=== PATIENT | male | born 1955 | race Caucasian/White ===

== ENCOUNTER 2017-12-31 12:48 | Inpatient (IN) | payer OTHER, SELFPAY ==
[2017-12-31] VITALS (10 sets, daily range): BP systolic 90–165; BP diastolic 59–104; PULSE 66–88; RESP 16–18; TEMP 36.5–37.3; O2SAT 92–98; BMI 20.2; BMI 18.8
--- NOTE | 2017-12-31 12:52 | EKG12_ITS ---
Test Reason : DYSRHYTHMIA Blood Pressure : / mmHG Vent. Rate : 068 BPM Atrial Rate : 068 BPM P-R Int : 152 ms QRS Dur : 090 ms QT Int : 414 ms P-R-T Axes : 062 085 067 degrees QTc Int : 440 ms Normal sinus rhythm Poor R wave progression Confirmed by EARNEST MARTINEZ, MEREDITH ([id number]), loan expeditor GASPER ESCALANTE ([id number]) on 01/05/2018 2:10:30 PM Referred By: STANLEY Confirmed By:MEREDITH TINOCO MD
--- NOTE | 2017-12-31 12:52 | RAD_ITS ---
STUDY: X-RAY CHEST REASON FOR EXAM: Male, 62 years old. Syncope. TECHNIQUE: Single AP portable view of the chest. COMPARISON: Comparison is made with prior study dated February 15, 2017. FINDINGS: EKG electrodes are seen. Hyperinflation. Scattered calcified granulomas. There is no demonstrated pleural abnormality. Normal size heart. Normal mediastinum and josé miguel. Normal visualized pulmonary arteries. Normal visualized aortic arch and descending thoracic aorta. There are diffuse degenerative changes of the visualized thoracic spine. Normal visualized ribs, clavicles, and shoulders. There is no demonstrated abnormality of the visualized soft tissue structures of the upper abdomen. RAD/Chest 1 View (Portable) IMPRESSION: Hyperinflation. The lungs are clear. Electronically Signed: Carlos Eduardo Currie MD at 13:41 EDT Tel [phone], Service support ,
--- NOTE | 2017-12-31 12:55 | ED.VISSUMM ---
- ER Visit Summary Date of Service: 12/31/17 Chief Complaint: Recurrent syncope History of Present Illness: The patient is a 62 M presents to the emergency department with multiple syncopal episodes. The patient states that he has been having them every day for the past 5-6 days. He states that initially, it started when he stood up quickly. He states he got very lightheaded and sweaty and then passed out. He states it happened almost every day since. It usually happens with change in position. He states when he moves quickly, he will get lightheaded. He denies any chest pain. He denies any shortness of breath. Patient has a long-standing history of alcohol abuse, but has had no change in his bowel movements. He denies any dark tarry stools. He has not no vomiting or hematemesis. He does have history of coronary vascular disease and is on multiple antihypertensives. He states he has been taking them without issue. He does take baby aspirin but no other anticoagulants. He denies headache or visual change. Physical Examination: Vital signs reviewed General: Well-nourished, well-developed Head: Normocephalic, atraumatic Eyes: Pupils equal and reactive, extraocular muscles intact Neck, supple, no lymphadenopathy Heart: Regular rate and rhythm Respiratory: No distress, clear bilaterally Abdomen: Soft, nontender, nondistended, no peritoneal signs Back: Nontender Extremities: Nontender, no edema, no cords Skin: Normal color no rash Neuro: Alert and oriented, no focal or lateralizing deficits Test Results: [] Emergency Department Course and Treatment: The patient has a benign examination. His EKG does not show ischemic change, prolonged QT, or other focus of arrhythmia. IV was established. Screening labs were obtained and are relatively unremarkable. The patient has no anemia. His cardiac enzymes are normal. Electrolytes are unremarkable. I do not feel that his symptoms are likely secondary to blood loss or other dangerous cause. The patient does have underlying history of coronary vascular disease and has had recurrent syncope. His orthostatics were positive. I do feel this may be a combination of his alcohol abuse and antihypertensives. However, I do feel that the patient is going require admission for further cardiac rule out including telemetry and echo. Patient was discussed with the hospitalist and will be admitted. Treatment Plan: [] Disposition: Admission Impression: 1. Recurrent syncope This note was generated with Dragon dictation software. It may contain incorrect words, spelling, and punctuation that were not noted in review of the chart prior to signing ED Disposition - Plan for ED Patient: Chief Complaint: Syncope [facility] [[facility] Provider] -
[2017-12-31] MEDS: 0.9% Normal Saline 1,000 ML 1000 ML IV (13:00)
--- NOTE | 2017-12-31 13:00 | ED.RN ---
CALLED [facility] TO NOTIFY THEM THAT PT WILL BE AN ADMISSION. LEFT MESSAGE
[2017-12-31 13:10] LABS: Absolute Lymphocyte Count 2.52 X10^3/ul (0.83-4.51); Absolute Neutrophil Count 3.1 X10^3/uL (2.0-7.7); Basophil# 0.05 X10^3/uL; Basophil% 0.8 % (0-1); Eosinophil# 0.24 X10^3/uL; Eosinophils% 3.7 % (0-5); Hematocrit 44.1 % (40-54); Hemoglobin 15.2 g/dl (13.0-16.5); Lymphocyte # 2.52 X10^3/ul (4.0); Lymphocyte % 38.5 % (19-41); Mean Corp Hgb Conc 34.5 g/gl (32-36); Mean Corpuscular Hgb 30.4 pg (27.0-32.0); Mean Corpuscular Volume 88.2 fL (80-94); Mean Platelet Vol. 9.1 fl (6.2-12.0); Monocyte% 9.2 % (0-10); Neutrophil # 3.12 X10^3/uL (2.7-7.7); Neutrophil % 47.6 % (47-70); POSITIVE COUNT NO; POSITIVE DIFFERENTIAL NO; POSITIVE MORPHOLOGY NO; Platelet Count 309 K/mm3 (150-450); RBC Distribution Width CV 14.2 % (11.6-14.6); RBC Distribution Width SD 45.4 fl (35.1-43.9); White Blood Count 6.5 K/mm3 (4.4-11.0)
[2017-12-31 13:17] LABS: International Normalized Ratio 0.9; Prothrombin Time (Protime)PT. 12.1 SECONDS (11.7-14.9)
[2017-12-31 13:25] LABS: Bacteria 0 SEEN /hpf (None Seen); Mucous, Urine 0 SEEN /hpf (<or=2+); Red Blood Cells-Urine 0 SEEN /hpf (0-5); Squamous Epithelial Cells - UA 0 SEEN /hpf (0-5); White Blood Cells 0 SEEN /hpf (0-5)
[2017-12-31 13:26] LABS: ALB/GLOB Ratio 0.9 RATIO (0.9-2.4); AST(SGOT) 110 U/L (15-37); Alanine Aminotransfer ALT/SGPT 91 U/L (16-61); Albumin, Serum 3.8 g/dL (3.2-5.0); Alkaline Phosphatase 113 U/L (45-117); Anion Gap 8 (5-15); BUN 4 mg/dL (7-18); BUN/Creat Ratio 6.4 RATIO (10-20); Calcium,Total 8.8 mg/dL (8.5-10.1); Chloride 93 mmol/L (98-107); Creatinine, Serum 0.63 mg/dL (0.70-1.30); EST Glomerular Filtration Rate 138 mL/min (>60); Est Glom Filt Rate - Afr Amer 167 mL/min (>60); Estimated Creatinine Clearance 103.35 ml/min; Globulin 4.2 g/dL (2.2-4.2); Glucose 117 mg/dL (74-106); Potassium 4.1 mmol/L (3.5-5.1); Sodium Level 131 mmol/L (136-145)
[2017-12-31 13:33] LABS: Color, Urine Straw (Yellow); Glucose, Dipstick Normal (Normal); Ketone-Dipstick Negative (Negative); Leukocyte Esterase-Dipstick 25 /ul (Negative); Nitrite-Dipstick Negative (Negative); Occult Blood-Urine Negative /ul (Negative); Protein-Dipstick Negative (Negative); Urine Bilirubin Dipstick Negative (Negative); Urine Clarity Clear (Clear); Urine Urobilinogen Normal (Normal); Urine pH 6.5 (5.0 - 8.0)
--- NOTE | 2017-12-31 13:59 | ED.RN ---
LEFT MESSAGE WITH [facility]
--- NOTE | 2017-12-31 15:00 | ED.RN ---
LEFT MESSAGE WITH [facility]; I HAVE BEEN UNABLE TO SPEAK WITH ANY PERSON
--- NOTE | 2017-12-31 15:40 | HP.PCM_ITS ---
<Geoffrey Hackett - Last Filed: 12/31/17 15:26> Problem List (1) Orthostatic hypotension Status: Acute (2) Syncope and collapse Status: Acute (3) Alcohol abuse Status: Chronic (4) Tobacco dependence Status: Chronic (5) BPH (benign prostatic hyperplasia) Status: Chronic (6) HTN (hypertension) Status: Chronic (7) CAD (coronary artery disease) Status: Chronic History of Present Illness Date of Admission: 12/31/17 Chief Complaint: syncope The patient is a 62 year old M with a hx of CAD, prior NE, Moyamoya disease, HTN , CHF, alcoholism, nicotine abuse, BPH, who presents to the ER with syncope that has happened at least 5 times over the past 24 hours, but multiple times for about 5 days. He lives alone at home, and has noticed that every time he needs to stand up, he has to first sit up and stay that way for several minutes. When he does this he becomes dizzy and lightheaded initially and will pass out of he stands up to quickly. Even with doing this he has still been passing out. He has not experienced SOB, CP, or or palpitations. He has had some coughing, one coughing bout did trigger a syncopal episode. He is a heavy drinkier, stating he drinks 6-12 beers daily and with an alcohol level of 150 on presentation to the ER. He also smokes heavily, stating he rolls his own but probably smokes at least a pack per day and has done so since age 17. His sister is present stating she thinks that his alcohol is part of the problem, which he denied when she stated this. He does report good compliance with his home medication regimen, he does not think that he missed anything or took double doses of anything, his sister confirms that he is very regimented. No swelling of his LE, and no difficulty emptying his bladder. [] Past Medical History Past Medical History (Chronic Problems): Chronic Problems Alcohol abuse (Chronic) Tobacco dependence (Chronic) BPH (benign prostatic hyperplasia) (Chronic) HTN (hypertension) (Chronic) CAD (coronary artery disease) (Chronic) Anxiety (Chronic) Allergies Penicillins [PCN] Allergy (Verified 12/31/17 12:53) Unknown Home Medications: Ambulatory Orders Medication Instructions Recorded Amlodipine [Norvasc] 5 mg PO DAILY 02/15/17 Aspirin [Aspir-Low] 81 mg PO DAILY 02/15/17 Carvedilol [Coreg] 3.125 mg PO BID 02/15/17 Isosorbide Mononitrate [Imdur] 60 mg PO BID 02/15/17 Tamsulosin HCl [Flomax] 0.4 mg PO DAILY 02/15/17 Surgical History: - - Patient states he had a previous bowel repair, unable to state exact procedure, brain surgery Psychiatric History: Anxiety Smoking Status: Current every day smoker Tobacco Use: Cigarettes - *Family History Maternal History Items: Cancer Paternal History Items: Hypertension Review of Systems Constitutional: Denies: Chills, Fever, Weight Change HEENT: Denies: Head Aches, Sinus Congestion, Sinus Drainage Cardiovascular: Denies: Chest Pain, Palpitations Respiratory: Denies: Cough, Shortness of breath at rest, Sputum production Gastrointestinal: Denies: Abdominal Pain, Nausea, Vomiting Genitourinary: Denies: Dysuria Musculoskeletal: Denies: Joint Pain, Joint Tenderness Skin: Denies: Rash, Wounds Neurological: Denies: Numbness, Tingling, Focal weakness Psychiatric: Denies: Anxiety, Depression, Homicidal Ideations, Suicidal Ideations Hematologic/ Lymphatic: Denies: Easy Bruising, Easy Bleeding VTE Information - Inpt Only VTE Present on Admission: No VTE Mechan Device Prophylaxis: SCD's, None VTE Pharm Prophylaxis ordered?: No Reason prophylaxis not ordered:: Medical Contraindication Patient Problems: Active and Suspected Problems Orthostatic hypotension (Acute) Syncope and collapse (Acute) - Physical Exam Vital Signs Temp Pulse Resp BP Pulse Ox 98.7 F 88 16 142/86 H 96 12/31/17 12:49 12/31/17 15:10 12/31/17 15:10 12/31/17 15:10 12/31/17 12:49 Oxygen Delivery Method Room Air Weight: 58.6 kg Body Mass Index (BMI) 20.2 Intake and Output for Last 24 Hours 12/29/17 12/30/17 12/31/17 23:59 23:59 23:59 Output Total 600 / 600 Balance -600 / -600 Laboratory Tests Past 24 Hrs 12/31/17 12/31/17 12/31/17 12:55 12:55 12:55 WBC 6.5 RBC 5.00 Hgb 15.2 Hct 44.1 MCV 88.2 MCH 30.4 MCHC 34.5 RDW 14.2 RDW Differential 45.4 H Plt Count 309 MPV 9.1 Immature Gran % (Auto) 0.200 Neut % (Auto) 47.6 Lymph % (Auto) 38.5 [place]own[place] % (Auto) 9.2 Eos % (Auto) 3.7 Baso % (Auto) 0.8 Absolute Neuts (auto) 3.1 Absolute Lymphs (auto) 2.52 Total Counted Not Reportable PT 12.1 INR 0.9 Sodium 131 L Potassium 4.1 Chloride 93 L Carbon Dioxide 30.0 Anion Gap 8 BUN 4 L Creatinine 0.63 L Estim Creat Clear Calc 103.35 Est GFR (MDRD) Af Amer 167 Est GFR (MDRD) Non-Af 138 BUN/Creatinine Ratio 6.4 L Glucose 117 H Calcium 8.8 Magnesium 2.0 Total Bilirubin 0.20 AST 110 H ALT 91 H Alkaline Phosphatase 113 Troponin I < 0.015 Total Protein 8.0 Albumin 3.8 Globulin 4.2 Albumin/Globulin Ratio 0.9 Urine Color Urine Clarity Urine pH Ur Specific [place] Urine Protein Urine Glucose (UA) Urine Ketones Urine Occult Blood Urine Nitrite Urine Bilirubin Urine Urobilinogen Ur Leukocyte Esterase Urine RBC Urine WBC Ur Squamous Epith Cells Urine Bacteria Urine Mucus Urine Amphetamine U Amphetamines Confirm Urine Cocaine Confirm U Cocaine Metab Screen U Benzoylecgonine GC/MS Ethyl Alcohol Urine Ethyl Alcohol Blood Type Antibody Screen 12/31/17 12/31/17 12/31/17 12:55 12:55 13:20 WBC RBC Hgb Hct MCV MCH MCHC RDW RDW Differential Plt Count MPV Immature Gran % (Auto) Neut % (Auto) Lymph % (Auto) [place] % (Auto) Eos % (Auto) Baso % (Auto) Absolute Neuts (auto) Absolute Lymphs (auto) Total Counted PT INR Sodium Potassium Chloride Carbon Dioxide Anion Gap BUN Creatinine Estim Creat Clear Calc Est GFR (MDRD) Af Amer Est GFR (MDRD) Non-Af BUN/Creatinine Ratio Glucose Calcium Magnesium Total Bilirubin AST ALT Alkaline Phosphatase Troponin I Total Protein Albumin Globulin Albumin/Globulin Ratio Urine Color Straw Urine Clarity Clear Urine pH 6.5 Ur Specific [place] 1.010 Urine Protein Negative Urine Glucose (UA) Normal Urine Ketones Negative Urine Occult Blood Negative Urine Nitrite Negative Urine Bilirubin Negative Urine Urobilinogen Normal Ur Leukocyte Esterase 25 H Urine RBC 0 SEEN Urine WBC 0 SEEN Ur Squamous Epith Cells 0 SEEN Urine Bacteria 0 SEEN Urine Mucus 0 SEEN Urine Amphetamine U Amphetamines Confirm Urine Cocaine Confirm U Cocaine Metab Screen U Benzoylecgonine GC/MS Ethyl Alcohol 152.0 Urine Ethyl Alcohol Blood Type A POSITIVE Antibody Screen NEGATIVE 12/31/17 13:20 WBC RBC Hgb Hct MCV MCH MCHC RDW RDW Differential Plt Count MPV Immature Gran % (Auto) Neut % (Auto) Lymph % (Auto) [place] % (Auto) Eos % (Auto) Baso % (Auto) Absolute Neuts (auto) Absolute Lymphs (auto) Total Counted PT INR Sodium Potassium Chloride Carbon Dioxide Anion Gap BUN Creatinine Estim Creat Clear Calc Est GFR (MDRD) Af Amer Est GFR (MDRD) Non-Af BUN/Creatinine Ratio Glucose Calcium Magnesium Total Bilirubin AST ALT Alkaline Phosphatase Troponin I Total Protein Albumin Globulin Albumin/Globulin Ratio Urine Color Urine Clarity Urine pH Ur Specific [place] Urine Protein Urine Glucose (UA) Urine Ketones Urine Occult Blood Urine Nitrite Urine Bilirubin Urine Urobilinogen Ur Leukocyte Esterase Urine RBC Urine WBC Ur Squamous Epith Cells Urine Bacteria Urine Mucus Urine Amphetamine Pending U Amphetamines Confirm Pending Urine Cocaine Confirm Pending U Cocaine Metab Screen Pending U Benzoylecgonine GC/MS Pending Ethyl Alcohol Urine Ethyl Alcohol Pending Blood Type Antibody Screen Assessment/Plan Active and Suspected Problems Orthostatic hypotension (Acute) Syncope and collapse (Acute) 1. Syncope with + orthostatic hypotension on presentation - This is complicated by a hx of Moyamoya disease and also complicated by alcoholism with hyponatremia. Will obtain stat CT brain. Consider neuro consult. He has had prior brain surgery at [facility] for moyamoya. He was also intoxicated at presentation with Blood alcohol 152. Tox Screen pending. UA neg. Orthos positive. Will replete with fluids and check orthos q6. Imdur decreased to 30 bid. 2. Alcoholism - start [facility] protocol thiamine, folate, librium, ativan 3. Hyponatremia - suspect 2/2 beer potomania. IV normal saline 4. Elevated LFTs suspect alcoholic hepatitis. 5. CAD - prior NE, prior caths with no intervention. On coreg, asa, decrease imdur to 30 bid. Troponin neg. EKG neg. 6. BPH - flomax, could also possibly be contributing to #1. DC planning: Consult to case management for substance abuse. DVT ppx; SCDs. Defer Lovenox with hx of moyamoya. This patient was seen by Geoffrey Hackett PA-C under the supervision of Doctor Manfred. <Nuno Shearer - Last Filed: 12/31/17 17:23> History of Present Illness Seen and examined patient came to ER With history of syncope about 1-2 times daily for last 5 days. Patient had 2 times syncope 2 days before. He has typical pattern whenever he stands up suddenly he feels dizzy, lightheaded and passed out. He also said he hit his head on the side but no major injury. Patient was Moa-moa, vascular disease for he was operated in [facility] over the right temporal region. With anatomical region it seems right temporal artery was involved. Patient drinks heavily as mentioned above about 6-12 beers daily and he says he can stay without withdrawal symptoms if he does not drink. His labs are significant of chronic alcoholic hepatitis with hyponatremia and elevated LFTs [] Past Medical History Allergies Penicillins [PCN] Allergy (Verified 12/31/17 12:53) Unknown - Physical Exam General: Alert, Oriented x3, Cooperative HEENT: Atraumatic, PERRLA, EOMI, Normocephalic Neck: Supple, No JVD, Negative Carotid Bruits Lungs: Diminished - Diminished more on left side than right side, Rhonchi - Thin built, - Cardiovascular: Regular rate, Regular Rhythm, Normal S1, Normal S2, No murmurs Abdomen: Bowel Sounds Present, Soft, Non Tender Extremities: No edema, Capillary Refill Less than 3 Seconds Skin: No rashes, No breakdown Musculoskeletal: No Tenderness to Palpation of Joints or Extremities, Arthritic Changes, Muscle Wasting Neurological: Cranial nerves II-XII grossly intact, Neuro grossly intact Psych/Mental Status: Normal Affect, Appropriate Vital Signs Temp Pulse Resp BP Pulse Ox 97.7 F L 71 16 124/97 H 94 12/31/17 15:55 12/31/17 15:55 12/31/17 15:55 12/31/17 15:55 12/31/17 15:55 Oxygen Delivery Method Room Air Weight: 122 lb 8 oz Body Mass Index (BMI) 18.8 Intake and Output for Last 24 Hours 12/29/17 12/30/17 12/31/17 23:59 23:59 23:59 Output Total 450 / 1050 Balance -450 / -1050 Assessment/Plan This patient was seen in conjunction with Geoffrey JACKSON. I have independently interviewed and examined the patient and reviewed pertinent history, examination findings, laboratory and plan of management. I have reviewed the note and agree with the documented findings with the few additional points. In brief, patient is admitted for multiple syncope most related to orthostatic hypotension with chronic alcohol use and dependence. CT scan brain was done and reported as no acute intracranial abnormality with chronic ischemic and atrophic changes. With history of recurrent passing out and syncope will order carotid Doppler and 2D echo. Patient denies any history of seizure or stroke I have discussed my assessment with Geoffrey JACKSON and orders have been reviewed. Code Visit Inpatient E&M: 20511 Init Hosp L3
--- NOTE | 2017-12-31 15:47 | CT_ITS ---
STUDY: CT BRAIN WITHOUT CONTRAST REASON FOR EXAM: Male, 62 years old. Syncope RADIATION DOSAGE (If Supplied By Facility): CTDIvol = ( 44.99 ) mGy, DLP = ( 796.11 ) mGycm TECHNIQUE: Transaxial CT imaging of the brain was performed without administration of intravenous contrast material. Individualized dose optimization techniques were used for this CT. COMPARISON: None. FINDINGS: There is no acute bleed or infarct. There are chronic ischemic and atrophic changes. The ventricles are normal in configuration. There is no hydrocephalus. There is mucosal hypertrophy in the maxillary sinuses. The visualized paranasal sinuses are otherwise clear. The mastoid air cells are well aerated. There are postsurgical changes noted from a right temporal craniotomy. There is no skull fracture. CT/Brain/Head without Contrast IMPRESSION: No acute intracranial abnormality. Chronic ischemic and atrophic changes. Maxillary sinusitis. Electronically Signed: Tad Villavicencio, at 16:27 EDT Tel , Service support ,
[2017-12-31] MEDS: 0.9% Normal Saline 1,000 ML 100 ML IV (17:02)
[2017-12-31] MEDS: Thiamine Hydrochloride 100 MG Tablet PO (17:04)
[2017-12-31] MEDS: chlordiazePOXIDE 25 MG Capsule 50 MG PO (17:09)
--- NOTE | 2017-12-31 17:20 | CDU_ITS ---
Reason For Study: Syncope Rt. Velocities/BP Lt. Velocities/BP Prox CCA 77/12 cm/sec. Prox CCA 99/25 cm/sec. Mid CCA 77/21 cm/sec. Mid CCA 78/24 cm/sec. Dist CCA 62/14 cm/sec. Dist CCA 69/21 cm/sec. Prox ICA 100/22 cm/sec. Prox ICA 59/20 cm/sec. Mid ICA 65/18 cm/sec. Mid ICA 70/26 cm/sec. Dist ICA 46/16 cm/sec. Dist ICA 98/36 cm/sec. Rt. ICA/CCA = 1.29. Lt. ICA/CCA = 1.25. Prox ECA 93/27 cm/sec. Prox ECA 83/23 cm/sec. Rt. Vert. 65/18 cm/sec. Lt. Vert. 52/14 cm/sec. Right Extracranial There is heterogeneous, irregular atherosclerotic plaque noted in the right common carotid artery. There is heterogeneous, irregular atherosclerotic plaque noted in the right internal carotid artery. There is intimal thickening but no significant atherosclerotic plaque noted in the right external carotid artery. Antegrade flow is noted in the right vertebral artery. Left Extracranial There is heterogeneous, irregular atherosclerotic plaque noted in the left common carotid artery. There is heterogeneous, irregular atherosclerotic plaque noted in the left internal carotid artery. There is heterogeneous, irregular atherosclerotic plaque noted in the left external carotid artery. Antegrade flow is noted in the left vertebral artery. Procedure Carotid Duplex 32665. Exam performed portable in patient room. Interpretation Summary Extensive, heterogeneous, irregular atherosclerotic plaque is noted in the right internal carotid artery. However, the degree of stenosis appears to be less than 50% based upon velocity criteria. Mild (<50%) stenosis left extracranial internal carotid. Flow within the vertebral arteries is antegrade bilaterally. Ordering Physician: Nuno Shearer Referring Physician: [facility] Performed By: Betsey Lomax, RDCS, RVT
--- NOTE | 2017-12-31 17:21 | ECHOD_ITS ---
Reason For Study: Syncope Procedure This was a 2D Doppler, Color Flow transthoracic echocardiogram. The study was technically difficult. Exam performed portable in patient room. Left Ventricle Normal LV size. Left ventricular systolic function is normal. The estimated ejection fraction is 55 %. Transmitral diastolic flow velocities suggest mild (stage 1) diastolic dysfunction (reversed pattern). No regional wall motion abnormalities noted. Right Ventricle Normal RV size. Normal systolic function. Atria Normal left atrium. Normal right atrium. Mitral Valve Normal mitral valve. Tricuspid Valve Normal tricuspid valve. Aortic Valve Normal aortic valve. Trisinus/trileaflet aortic valve. Pulmonic Valve Normal pulmonic valve. Great Vessels Normal aortic root. The pulmonary artery is normal size. Normal inferior vena cava. Pericardium/Pleural No pericardial effusion. MMode/2D Measurements & Calculations LVIDd: 4.8 cm IVSd: 0.89 cm Ao root diam: 3.5 cm LVIDs: 3.5 cm LVPWd: 0.92 cm LA dimension: 2.5 cm RVDd: 2.8 cm FS: 26.7 % RA A4 area: 10.9 cm2 Time Measurements MV dec time: 0.24 sec Doppler Measurements & Calculations MV E max leo: 43.4 cm/sec Lat Peak E' Leo: 11.1 cm/sec Med Peak E' Leo: 10.0 cm/sec MV A max leo: 62.4 cm/sec E/E' lat: 3.9 E/E' med: 4.3 MV E/A: 0.69 MV V2 max: 81.4 cm/sec MV P1/2t max leo: 60.4 cm/sec Ao V2 max: 124.7 cm/sec MV max P.7 mmHg MV P1/2t: 58.5 msec Ao max P.2 mmHg MV V2 mean: 39.4 cm/sec MV dec slope: 302.6 cm/sec2 Ao V2 mean: 82.5 cm/sec MV mean P.76 mmHg MVA(P1/2t): 3.8 cm2 Ao mean P.1 mmHg MV V2 VTI: 16.3 cm Ao V2 VTI: 23.8 cm LV V1 max: 100.0 cm/sec PA V2 max: 99.2 cm/sec LV V1 max P.0 mmHg LV V1 mean P.0 mmHg LV V1 mean: 65.2 cm/sec LV V1 VTI: 19.7 cm Interpretation Summary Normal LV size. Left ventricular systolic function is normal. The estimated ejection fraction is 55 %. Transmitral diastolic flow velocities suggest mild (stage 1) diastolic dysfunction (reversed pattern). Ordering Physician: Nuno Shearer Referring Physician: [place] [place] Performed By: Guille Young RCS
[2017-12-31] MEDS: Isosorbide Mononitrate 30 MG Tablet PO (21:11)
[2017-12-31] MEDS: Carvedilol 3.125 MG TABLET PO (21:11)
[2017-12-31] MEDS: Tamsulosin HCl 0.4 MG Capsule PO (21:12)
[2018-01-01] VITALS (7 sets, daily range): BP systolic 106–140; BP diastolic 46–101; PULSE 66–88; RESP 16–18; TEMP 36.2–36.8; O2SAT 94–95
[2018-01-01] MEDS: 0.9% Normal Saline 1,000 ML 100 ML IV (03:07)
[2018-01-01 06:23] LABS: ALB/GLOB Ratio 0.9 RATIO (0.9-2.4); AST(SGOT) 80 U/L (15-37); Alanine Aminotransfer ALT/SGPT 74 U/L (16-61); Albumin, Serum 3.2 g/dL (3.2-5.0); Alkaline Phosphatase 100 U/L (45-117); Anion Gap 7 (5-15); BUN 6 mg/dL (7-18); BUN/Creat Ratio 10.1 RATIO (10-20); Calcium,Total 8.4 mg/dL (8.5-10.1); Chloride 101 mmol/L (98-107); EST Glomerular Filtration Rate 147 mL/min (>60); Est Glom Filt Rate - Afr Amer 178 mL/min (>60); Globulin 3.6 g/dL (2.2-4.2); Glucose 82 mg/dL (74-106); Potassium 4.1 mmol/L (3.5-5.1); Protein, Total 6.8 g/dL (6.4-8.2); Sodium Level 136 mmol/L (136-145)
[2018-01-01] MEDS: Aspirin 81 MG TAB.CHEW PO (09:39)
[2018-01-01] MEDS: Folic Acid 1 MG Tablet PO (09:39)
[2018-01-01] MEDS: amLODIPine 5 MG Tablet PO (09:40)
[2018-01-01] MEDS: Multivitamins,Ther W-Minerals Tablet 1 TABLET PO (09:40)
[2018-01-01] MEDS: Isosorbide Mononitrate 30 MG Tablet PO (09:40)
[2018-01-01] MEDS: Thiamine Hydrochloride 100 MG Tablet PO (09:40)
[2018-01-01] MEDS: Carvedilol 3.125 MG TABLET PO (09:40)
[2018-01-01] MEDS: Tamsulosin HCl 0.4 MG Capsule PO (09:42)
--- NOTE | 2018-01-01 09:59 | NURSING ---
Patient refusing Librium at this times. Extensive education provided regarding s/s of ETOH withdrawl.
--- NOTE | 2018-01-01 10:11 | CASEMGMT ---
Clinicals faxed to the [facility] at this time. Message left with [facility] at this time to notify them again of pt admission. Scarlett TANG CM
--- NOTE | 2018-01-01 10:43 | CASEMGMT ---
SW spoke w/Citlaly Pro from [facility], she or [facility] can come see pt today. GRICELDA Campos, LEATHER SCRAPER
--- NOTE | 2018-01-01 11:55 | CASEMGMT ---
Face to Face with patient for initial transition planning/care coordination assessment. KITTY GONZALEZ introduced self and role at [facility], pt voices understanding and consents to assessment at this time. Pt is sitting up in bed in no distress at this time. Pt is A/O x4 at this time and answers all questions appropriately. Care providers, pharmacy, and demographics verified. See attached link. Pt voices no further concerns/needs at this time. Advised pt to ask for CM if any further questions/concerns/needs arise, voices understanding. [facility] saw and pt refused resources at this time. PLAN[place] KITTY GONZALEZ
--- NOTE | 2018-01-01 12:46 | PCM.DC ---
- Discharge Diagnoses Current Active Problems: Current Active and Chronic Problems Orthostatic hypotension (Acute) Syncope and collapse (Acute) You will use the following diet at home:: Cardiac, Other - no alcohol Your food should be the consistency of: Regular Your liquids should be the consistency of: Regular/Thin Discharge Activity: Return to Normal Activity Call your doctor if you observe: Chest pain Allergies/Adverse Reactions: Allergies Penicillins [PCN] Allergy (Verified 12/31/17 12:53) Unknown Medications to take at Discharge Amlodipine [Norvasc] 5 mg PO DAILY 02/15/17 Aspirin [Aspir-Low] 81 mg PO DAILY 02/15/17 Carvedilol [Coreg] 3.125 mg PO BID 02/15/17 Tamsulosin HCl [Flomax] 0.4 mg PO BID 02/15/17 Folic Acid 1 mg PO DAILY@0800 #14 tab 01/01/18 Isosorbide Mononitrate [Imdur] 30 mg PO DAILY #30 tab 01/01/18 Multivitamins,Ther W-Minerals [Multivitamin With Minerals] 1 tab PO DAILYCM #30 tab 01/01/18 Thiamine Hydrochloride [Vitamin B1] 100 mg PO DAILY #14 tab 01/01/18 The following prescriptions were given: Folic Acid 1 mg PO DAILY@0800 #14 tab Isosorbide Mononitrate [Imdur] 30 mg PO DAILY #30 tab Multivitamins,Ther W-Minerals [Multivitamin With Minerals] 1 tab PO DAILYCM #30 tab Thiamine Hydrochloride [Vitamin B1] 100 mg PO DAILY #14 tab Primary Care Physician: [facility] [Primary Care Provider] - Please follow up with your Primary Care Physician in: 1-2 weeks Proposed Discharge Date: 01/01/18
--- NOTE | 2018-01-01 12:47 | PCM.DC.SUM ---
<Geoffrey Hackett - Last Filed: 01/01/18 12:53> Discharge Date and Diagnosis Date of Admission: 12/31/17 Date of Discharge: 01/01/18 - Primary Discharge Diagnosis Active and Suspected Problems Syncope 2/2 orthostatic hypotension, suspected 2/2 polypharmacy alcohol abuse with withdrawal hyponatremia 2/2 beer potomania nicotine abuse Hx Moyamoya disease CAD BPH HTN - Secondary Discharge Diagnosis Chronic Problems Alcohol abuse (Chronic) Tobacco dependence (Chronic) BPH (benign prostatic hyperplasia) (Chronic) HTN (hypertension) (Chronic) CAD (coronary artery disease) (Chronic) Anxiety (Chronic) Hospital Course and Treatment Imaging Results: Echo: EF 55%, Stage 1 diastolic dysfxn, LV size and function normal. Carotid US - pending. CT/Brain/Head without Contrast IMPRESSION: No acute intracranial abnormality. Chronic ischemic and atrophic changes. Maxillary sinusitis. RAD/Chest 1 View (Portable) IMPRESSION: Hyperinflation. The lungs are clear. Operations: None Procedures: 2-D Echocardiogram Summary of Care Provided: Physical exam on day of discharge: General: Resting comfortably NAD Psych: A/Ox3 normal affect HEENT: PEARRLA AT NC Neck: Supple NT CV: RRR no m/t/r/g/h Resp: CTA Abd: [id number] Soft NT no guarding or rigidity Ext: DP2+= no edema Skin: W/D normal turgor Lymph/Heme: No active bleeding or adenopathy Neuro: CN2-12 intact, bilateral upper extremity tremor Hospital course: The patient is a 62 year old M with a hx of CAD, moyamoya, HTN, alcohol and nicotine abuse, who presented to the ER with multiple syncopal episodes in the 5 days prior to presentation. He was found to be severely orthostatic in the ER, which was consistent with his story of becoming very dizzy and lightheaded with sitting and standing. He was on multiple BP medications for a hx of CAD. He also drinks at least a 12 pack of beer daily. He was admitted and given IV fluids, had his imdur decreased to 30 BID, and was placed on alcohol withdrawal protocol. He improved significantly overnight. He still had a drop in his orthostatic BP, however he had no further dizziness or LH with sitting or standing. We advised him to decreased his imdur to 30 daily for home, with the stipulation that he needs to contact his doctor if he develops chest pain. He had no events on tele overnight. He did have withdrawal symptoms including tremor in the AM, however he declined librium/ativan. There is a carotid US pending at this time. He was discharged home in stable condition. Please follow up with PCP in 1-2 weeks. This patient was seen by Geoffrey Hackett PA-C under the supervision of Doctor Dorinda. [] Discharge Diet: Low fat/ Low Cholesterol, 2000 mg Sodium Diet, - - no alcohol Discharge Activity: Return to Normal Activity Call your doctor if you observe: Chest pain Home Medications: Medications to take at Discharge Amlodipine [Norvasc] 5 mg PO DAILY 02/15/17 Aspirin [Aspir-Low] 81 mg PO DAILY 02/15/17 Carvedilol [Coreg] 3.125 mg PO BID 02/15/17 Tamsulosin HCl [Flomax] 0.4 mg PO BID 02/15/17 Folic Acid 1 mg PO DAILY@0800 #14 tab 01/01/18 Isosorbide Mononitrate [Imdur] 30 mg PO DAILY #30 tab 01/01/18 Multivitamins,Ther W-Minerals [Multivitamin With Minerals] 1 tab PO DAILYCM #30 tab 01/01/18 Thiamine Hydrochloride [Vitamin B1] 100 mg PO DAILY #14 tab 01/01/18 Following Prescrptions Were Given to Patient: Folic Acid 1 mg PO DAILY@0800 #14 tab Isosorbide Mononitrate [Imdur] 30 mg PO DAILY #30 tab Multivitamins,Ther W-Minerals [Multivitamin With Minerals] 1 tab PO DAILYCM #30 tab Thiamine Hydrochloride [Vitamin B1] 100 mg PO DAILY #14 tab Primary Care Physician: [facility],[place] [Primary Care Provider] - Please follow up with your Primary Care Physician in: 1-2 weeks Disposition: Home Minutes spent on discharge:: 35 Patient Condition:: Stable Medical Necessity - Tobacco Use Smoking Status: Current every day smoker Tobacco Use: Cigarettes Meaningful Use Info Meaningful Use Diagnoses (Choose all that apply): None applicable <Deshaun Seth E - Last Filed: 01/01/18 15:41> Discharge Date and Diagnosis - Secondary Discharge Diagnosis Chronic Problems Alcohol abuse (Chronic) Tobacco dependence (Chronic) BPH (benign prostatic hyperplasia) (Chronic) HTN (hypertension) (Chronic) CAD (coronary artery disease) (Chronic) Anxiety (Chronic) Hospital Course and Treatment Summary of Care Provided: Hospitalist note: Discharge summary above reviewed as well as physical examination and I agree with above discharge plan. Patient was admitted for syncopal episodes which is attributed to orthostatic hypotension. Patient has been taking isosorbide mononitrate 60 mg p.o. twice daily and this could be 1 of the reasons causing his syncopal episodes. Isosorbide mononitrate decreased down to 50 mg p.o. daily. Also, he was found to have alcohol withdrawal as he has been drinking alcohol heavily. His EKG revealed normal sinus rhythm without evidence of cardiac arrhythmias or acute ischemic changes. CT scan brain showed no acute intracranial abnormality. 2D echocardiogram revealed normal LV size and function, ejection fraction 55% and my stage I diastolic dysfunction. Patient was treated with IV fluids and today, his blood pressure significantly improved. His orthostatic vitals were negative today. Patient feels better, denies any more dizziness or lightheadedness. His routine blood work was unremarkable. Troponin was negative. Serum magnesium and calcium were normal. LFT was slightly elevated which is probably due to chronic liver disease secondary to alcohol abuse. - Physical Exam General: Alert, Oriented x3, Cooperative, No apparent distress. HEENT: Atraumatic, PERRLA, EOMI. Neck: Supple, No JVD, Negative Carotid Bruits, Trachea Midline, Thyroid Normal. Lungs: Clear to auscultation, Normal air movement, No rhonchi, No wheeze, No rales. Cardiovascular: Regular rate, Regular Rhythm, Normal S1, Normal S2, PMI Normal. Abdomen: Bowel Sounds Present, Soft, Non Tender, Non-Distended, No Hepato-splenomegaly. Extremities: No clubbing, No cyanosis, No edema Skin: No rashes, No breakdown Neurological: Neuro grossly intact Vital Signs are stable. . Minutes spent on discharge:: 25 Meaningful Use Info Meaningful Use Diagnoses (Choose all that apply): None applicable Code Visit OBSV E&M: 08749 Observation care discharge
--- NOTE | 2018-01-01 12:51 | DS.PCM_ITS ---
<Geoffrey Hackett - Last Filed: 01/01/18 12:53> Discharge Date and Diagnosis Date of Admission: 12/31/17 Date of Discharge: 01/01/18 - Primary Discharge Diagnosis Active and Suspected Problems Syncope 2/2 orthostatic hypotension, suspected 2/2 polypharmacy alcohol abuse with withdrawal hyponatremia 2/2 beer potomania nicotine abuse Hx Moyamoya disease CAD BPH HTN - Secondary Discharge Diagnosis Chronic Problems Alcohol abuse (Chronic) Tobacco dependence (Chronic) BPH (benign prostatic hyperplasia) (Chronic) HTN (hypertension) (Chronic) CAD (coronary artery disease) (Chronic) Anxiety (Chronic) Hospital Course and Treatment Imaging Results: Echo: EF 55%, Stage 1 diastolic dysfxn, LV size and function normal. Carotid US - pending. CT/Brain/Head without Contrast IMPRESSION: No acute intracranial abnormality. Chronic ischemic and atrophic changes. Maxillary sinusitis. RAD/Chest 1 View (Portable) IMPRESSION: Hyperinflation. The lungs are clear. Operations: None Procedures: 2-D Echocardiogram Summary of Care Provided: Physical exam on day of discharge: General: Resting comfortably NAD Psych: A/Ox3 normal affect HEENT: PEARRLA AT NC Neck: Supple NT CV: RRR no m/t/r/g/h Resp: CTA Abd: [id number] Soft NT no guarding or rigidity Ext: DP2+= no edema Skin: W/D normal turgor Lymph/Heme: No active bleeding or adenopathy Neuro: CN2-12 intact, bilateral upper extremity tremor Hospital course: The patient is a 62 year old M with a hx of CAD, moyamoya, HTN, alcohol and nicotine abuse, who presented to the ER with multiple syncopal episodes in the 5 days prior to presentation. He was found to be severely orthostatic in the ER , which was consistent with his story of becoming very dizzy and lightheaded with sitting and standing. He was on multiple BP medications for a hx of CAD. He also drinks at least a 12 pack of beer daily. He was admitted and given IV fluids, had his imdur decreased to 30 BID, and was placed on alcohol withdrawal protocol. He improved significantly overnight. He still had a drop in his orthostatic BP, however he had no further dizziness or LH with sitting or standing. We advised him to decreased his imdur to 30 daily for home, with the stipulation that he needs to contact his doctor if he develops chest pain. He had no events on tele overnight. He did have withdrawal symptoms including tremor in the AM, however he declined librium/ativan. There is a carotid US pending at this time. He was discharged home in stable condition. Please follow up with PCP in 1-2 weeks. This patient was seen by Geoffrey Hackett PA-C under the supervision of Doctor Dorinda. [] Discharge Diet: Low fat/ Low Cholesterol, 2000 mg Sodium Diet, - - no alcohol Discharge Activity: Return to Normal Activity Call your doctor if you observe: Chest pain Home Medications: Medications to take at Discharge Amlodipine [Norvasc] 5 mg PO DAILY 02/15/17 Aspirin [Aspir-Low] 81 mg PO DAILY 02/15/17 Carvedilol [Coreg] 3.125 mg PO BID 02/15/17 Tamsulosin HCl [Flomax] 0.4 mg PO BID 02/15/17 Folic Acid 1 mg PO DAILY@0800 #14 tab 01/01/18 Isosorbide Mononitrate [Imdur] 30 mg PO DAILY #30 tab 01/01/18 Multivitamins,Ther W-Minerals [Multivitamin With Minerals] 1 tab PO DAILYCM #30 tab 01/01/18 Thiamine Hydrochloride [Vitamin B1] 100 mg PO DAILY #14 tab 01/01/18 Following Prescrptions Were Given to Patient: Folic Acid 1 mg PO DAILY@0800 #14 tab Isosorbide Mononitrate [Imdur] 30 mg PO DAILY #30 tab Multivitamins,Ther W-Minerals [Multivitamin With Minerals] 1 tab PO DAILYCM #30 tab Thiamine Hydrochloride [Vitamin B1] 100 mg PO DAILY #14 tab Primary Care Physician: [facility],[place] [Primary Care Provider] - Please follow up with your Primary Care Physician in: 1-2 weeks Disposition: Home Minutes spent on discharge:: 35 Patient Condition:: Stable Medical Necessity - Tobacco Use Smoking Status: Current every day smoker Tobacco Use: Cigarettes Meaningful Use Info Meaningful Use Diagnoses (Choose all that apply): None applicable <Deshaun Seth E - Last Filed: 01/01/18 15:41> Discharge Date and Diagnosis - Secondary Discharge Diagnosis Chronic Problems Alcohol abuse (Chronic) Tobacco dependence (Chronic) BPH (benign prostatic hyperplasia) (Chronic) HTN (hypertension) (Chronic) CAD (coronary artery disease) (Chronic) Anxiety (Chronic) Hospital Course and Treatment Summary of Care Provided: Hospitalist note: Discharge summary above reviewed as well as physical examination and I agree with above discharge plan. Patient was admitted for syncopal episodes which is attributed to orthostatic hypotension. Patient has been taking isosorbide mononitrate 60 mg p.o. twice daily and this could be 1 of the reasons causing his syncopal episodes. Isosorbide mononitrate decreased down to 50 mg p.o. daily. Also, he was found to have alcohol withdrawal as he has been drinking alcohol heavily. His EKG revealed normal sinus rhythm without evidence of cardiac arrhythmias or acute ischemic changes. CT scan brain showed no acute intracranial abnormality. 2D echocardiogram revealed normal LV size and function, ejection fraction 55% and my stage I diastolic dysfunction. Patient was treated with IV fluids and today, his blood pressure significantly improved. His orthostatic vitals were negative today. Patient feels better, denies any more dizziness or lightheadedness. His routine blood work was unremarkable. Troponin was negative. Serum magnesium and calcium were normal. LFT was slightly elevated which is probably due to chronic liver disease secondary to alcohol abuse. - Physical Exam General: Alert, Oriented x3, Cooperative, No apparent distress. HEENT: Atraumatic, PERRLA, EOMI. Neck: Supple, No JVD, Negative Carotid Bruits, Trachea Midline, Thyroid Normal. Lungs: Clear to auscultation, Normal air movement, No rhonchi, No wheeze, No rales. Cardiovascular: Regular rate, Regular Rhythm, Normal S1, Normal S2, PMI Normal. Abdomen: Bowel Sounds Present, Soft, Non Tender, Non-Distended, No Hepato- splenomegaly. Extremities: No clubbing, No cyanosis, No edema Skin: No rashes, No breakdown Neurological: Neuro grossly intact Vital Signs are stable. . Minutes spent on discharge:: 25 Meaningful Use Info Meaningful Use Diagnoses (Choose all that apply): None applicable Code Visit OBSV E&M: 40991 Observation care discharge
[2018-01-07 03:07] LABS: Barbiturates Negative ng/mL (Cutoff=300); Cannabinoid Negative ng/mL (Cutoff=50); Cocaine Negative ng/mL (Cutoff=300); Phencyclidine Negative ng/mL (Cutoff=25)
[2018-01-08 14:10] LABS: Alcohol 0.195 % (Cutoff=0.020); Amphetamines Negative ng/mL (Cutoff=1000); Opiates Negative ng/mL (Cutoff=300)
== END 2018-01-01 13:50 | disposition home or self-care (01) | DRG 312 ==
LOC: ED 13:22 → PCU 15:35
PROVIDERS: Physician Assistant; Admitting Provider Internal Medicine; Emergency Provider Emergency Medicine; Visit Provider Hospitalist
DX: I95.1 Orthostatic hypotension (principal); F10.239 Alcohol dependence with withdrawal, unspecified; E87.1 Hypo-osmolality and hyponatremia; Y90.6 Blood alcohol level of 120-199 mg/100 ml; I25.10 Atherosclerotic heart disease of native coronary artery without angina pectoris; N40.0 Benign prostatic hyperplasia without lower urinary tract symptoms; I11.0 Hypertensive heart disease with heart failure; I50.9 Heart failure, unspecified; I25.2 Old myocardial infarction; F17.210 Nicotine dependence, cigarettes, uncomplicated
CPT/HCPCS: 36415; 70450; 71045; 80053; 80307; 80320; 81001; 83735; 84484; 85025; 85610; 86850; 86900; 93005; 93306; 93880; 97161; 97165; 97802; 99285; 99406; J7030; A4216; G0480

== ENCOUNTER 2018-10-11 08:26 | Emergency (ER) | payer OTHER, SELFPAY ==
[2018-10-11 08:27] VITALS: BP 114/73; PULSE 92; RESP 20; TEMP 36.9; O2SAT 96; BMI 21.1
--- NOTE | 2018-10-11 08:38 | EKG12_ITS ---
Test Reason : SOB Blood Pressure : / mmHG Vent. Rate : 085 BPM Atrial Rate : 085 BPM P-R Int : 142 ms QRS Dur : 084 ms QT Int : 374 ms P-R-T Axes : 079 082 082 degrees QTc Int : 445 ms Normal sinus rhythm Poor R wave progression Septal NH, age undetermined, cannot be excluded Confirmed by EARNEST MARTINEZ, MEREDITH ([id number]), publishing editor HOLLY DOMINGUEZ ([id number]) on 10/13/2018 9:54:06 AM Referred By: MADALYN Confirmed By:MEREDITH TINOCO MD
--- NOTE | 2018-10-11 08:40 | ED.DCSUM_ITS ---
- ER Visit Summary Date of Service: 10/11/18 Chief Complaint: Cough, shortness of breath History of Present Illness: The patient is a 63 M presenting with cough, shortness of breath. He states his symptoms started yesterday. He has had fever up to 100.3 at home with chills. He has had a productive cough and shortness of breath. He has chest pain only with coughing. He states that he has had posttussive emesis. He states the cough kept him up all night. He denies abdominal pain. He did not receive a flu shot this year. He is a smoker. No other complaints. Physical Examination: Vitals are stable. Patient is afebrile. Alert no acute distress. HEENT exam is unremarkable. Neck is supple. Lungs are clear and equal bilaterally. Heart is regular rate and rhythm. Abdomen is soft nontender nondistended. Extremities are unremarkable. Skin is warm and dry. No focal neurologic deficit. Remainder of exam is unremarkable. Emergency Department Course and Treatment: Patient was given albuterol, Atrovent aerosol. CBC unremarkable. Chemistries shows sodium 128, glucose 109. He has history of chronic hyponatremia. Troponin is negative. Influenza negative. Chest x-ray shows no acute process. Patient was able to ambulate in the ED with a pulse ox 98% on room air. He is given a prescription for Tessalon Perles. Advised to follow-up with his primary care physician. Advised return to ED if worsening complaints. Disposition: Discharge home Impression: Bronchitis This note was generated with [employer] dictation software. It may contain incorrect words, spelling, and punctuation that were not noted in review of the chart prior to signing ED Disposition - Plan for ED Patient: Instructions: ED Upper Resp Infec No Abx Tx Prescriptions: Benzonatate [Tessalon Perle] 200 mg PO TID PRN PRN #20 capsule PRN Reason: Cough [facility]errals: [facility] [Primary Care Provider] -
[2018-10-11] MEDS: Ipratropium/Albuterol Sulfate 3 ML AMPUL.NEB INHALATION (08:48)
[2018-10-11 08:51] VITALS: PULSE 84; RESP 16; O2SAT 93
[2018-10-11 09:13] LABS: Absolute Lymphocyte Count 0.39 X10^3/ul (0.83-4.51); Basophil# 0.05 X10^3/uL; Basophil% 1.2 % (0-1); Eosinophil# 0.03 X10^3/uL; Eosinophils% 0.7 % (0-5); Hematocrit 38.9 % (40-54); Lymphocyte # 0.39 X10^3/ul (4.0); Mean Corp Hgb Conc 33.4 g/gl (32-36); Mean Corpuscular Hgb 29.9 pg (27.0-32.0); Mean Corpuscular Volume 89.4 fL (80-94); Mean Platelet Vol. 9.4 fl (6.2-12.0); Monocyte# 0.87 X10^3/uL; Monocyte% 20.1 % (0-10); Neutrophil # 2.97 X10^3/uL (2.7-7.7); Neutrophil % 68.8 % (47-70); Platelet Count 184 K/mm3 (150-450); RBC Distribution Width CV 13.6 % (11.6-14.6); RBC Distribution Width SD 44.8 fl (35.1-43.9); Red Blood Count 4.35 M/mm3 (4.6-6.2); White Blood Count 4.3 K/mm3 (4.4-11.0)
[2018-10-11 09:14] LABS: Differential Indicated SCAN CRITERIA MET; POSITIVE COUNT NO; POSITIVE DIFFERENTIAL YES; POSITIVE MORPHOLOGY NO
[2018-10-11 09:29] LABS: BUN 7 mg/dL (7-18); BUN/Creat Ratio 9.3 RATIO (10-20); Calcium,Total 8.8 mg/dL (8.5-10.1); Chloride 91 mmol/L (98-107); Creatinine, Serum 0.75 mg/dL (0.70-1.30); EST Glomerular Filtration Rate 112 mL/min (>60); Est Glom Filt Rate - Afr Amer 136 mL/min (>60); Estimated Creatinine Clearance 89.58 ml/min; Glucose 109 mg/dL (74-106); Potassium 4.3 mmol/L (3.5-5.1); Sodium Level 128 mmol/L (136-145)
[2018-10-11 09:30] LABS: Anion Gap 11 (5-15)
--- NOTE | 2018-10-11 09:50 | RAD_ITS ---
STUDY: X-RAY CHEST REASON FOR EXAM: Male, 63 years old. Cough. TECHNIQUE: PA and lateral views of the chest. COMPARISON: Comparison is made with prior study dated December 31, 2017. FINDINGS: Hyperinflation. Scattered calcified granulomas. No acute abnormality is seen. There is no demonstrated pleural abnormality. Normal size heart. Normal mediastinum and josé miguel. Normal visualized pulmonary arteries. Normal visualized aortic arch and descending thoracic aorta. There are degenerative changes of the visualized thoracic spine. Normal visualized ribs, clavicles, and shoulders. There is no demonstrated abnormality of the visualized soft tissue structures of the upper abdomen. RAD/Chest PA and Lateral IMPRESSION: Hyperinflation. The lungs are clear. Electronically Signed: Carlos Eduardo Currie MD at 10:26 EST , Service support ,
[2018-10-11 10:31] VITALS: O2SAT 95
--- NOTE | 2018-10-11 10:55 | ED.DEP ---
ED Disposition - Plan for ED Patient: Instructions: ED Upper Resp Infec No Abx Tx Prescriptions: Benzonatate [Tessalon Perle] 200 mg PO TID PRN PRN #20 capsule PRN Reason: Cough [facility]: [facility] [Primary Care Provider] -
== END 2018-10-11 11:39 | disposition home or self-care (01) ==
PROVIDERS: Emergency Provider Emergency Medicine
DX: J40 Bronchitis, not specified as acute or chronic (principal); F17.200 Nicotine dependence, unspecified, uncomplicated
CPT/HCPCS: 71046; 80048; 84484; 85025; 87804; 93005; 94640; 99284; A4216

== ENCOUNTER 2020-03-17 15:40 | Emergency (ER) | payer OTHER, SELFPAY ==
[2020-03-17 15:41] VITALS: BP 145/101; PULSE 73; RESP 17; TEMP 36.4; O2SAT 100; BMI 21.1
--- NOTE | 2020-03-17 15:59 | CT_ITS ---
STUDY: CT ABDOMEN AND PELVIS WITHOUT CONTRAST REASON FOR EXAM: Male, 64 years old. Left flank pain RADIATION DOSAGE (If Supplied By Facility): CTDIvol = ( 6.04 ) mGy, DLP = ( 276.33 ) mGycm TECHNIQUE: Transaxial images were obtained from the dome of the diaphragm to the symphysis pubis without oral contrast, and without intravenous contrast. Sagittal and coronal images were reconstructed. Individualized dose optimization techniques were used for this CT. COMPARISON: November 27 2011 FINDINGS: Lung bases are moderately to severely emphysematous and clear. Inferior mediastinal structures are normal. The liver is severely fatty infiltrated without biliary dilation. Gallbladder is normal. Kidneys are normal without calculi or hydronephrosis. Adrenals, pancreas and spleen are unremarkable. There is no intestinal obstruction. There is a left lateral bladder diverticulum. Lumbar spine is aligned. There is chronic subchondral erosive degenerative change at T12-L1 reactive sclerosis. CT/Abdomen/Pelvis without Cont IMPRESSION: No acute abdominal findings. Severe hepatic steatosis. Hepatology referral is advised. Emphysema. Electronically Signed: Gonzalez Shipman, at 17:09 EDT Tel , Service support ,
[2020-03-17] MEDS: Morphine 4 MG/ML Syringe IV (16:16)
[2020-03-17] MEDS: Ondansetron 4 MG/2 ML Vial IV (16:16)
[2020-03-17 16:18] LABS: Mucous, Urine 0 SEEN /hpf (<or=2+); Red Blood Cells-Urine 0 SEEN /hpf (0-5); White Blood Cells 0 SEEN /hpf (0-5)
[2020-03-17 16:19] LABS: Color, Urine Yellow (Yellow); Glucose, Dipstick Normal (Normal); Ketone-Dipstick 50 mg/dl (Negative); Leukocyte Esterase-Dipstick Negative /ul (Negative); Nitrite-Dipstick Negative (Negative); Occult Blood-Urine Negative /ul (Negative); Protein-Dipstick Negative (Negative); Specific Gravity, Urine 1.015 (1.002-1.030); Urine Bilirubin Dipstick Negative (Negative); Urine Clarity Clear (Clear); Urine Urobilinogen Normal (Normal)
[2020-03-17 16:22] VITALS: BP 188/90; PULSE 69; RESP 14; O2SAT 99
[2020-03-17 16:26] LABS: Bacteria 1+ /hpf (None Seen); Squamous Epithelial Cells - UA 0-5 SEEN /hpf (0-5)
[2020-03-17 16:29] LABS: Absolute Lymphocyte Count 1.84 X10^3/uL (0.83-4.51); Absolute Neutrophil Count 3.7 X10^3/uL (2.0-7.7); Basophil# 0.09 X10^3/uL; Basophil% 1.5 % (0-1); Eosinophil# 0.04 X10^3/uL; Eosinophils% 0.7 % (0-5); Hematocrit 42.9 % (40-54); Hemoglobin 14.7 g/dL (13.0-16.5); Lymphocyte # 1.84 X10^3/ul (4.0); Lymphocyte % 30.1 % (19-41); Mean Corp Hgb Conc 34.3 g/dL (32-36); Mean Corpuscular Hgb 31.7 pg (27.0-32.0); Mean Corpuscular Volume 92.5 fL (80-94); Mean Platelet Vol. 9.9 fl (6.2-12.0); Monocyte# 0.38 X10^3/uL; Monocyte% 6.2 % (0-10); NRBC Flagged by Analyzer 0 % (0-5); Neutrophil # 3.74 X10^3/uL (2.7-7.7); Neutrophil % 61.2 % (47-70); POSITIVE COUNT YES; POSITIVE MORPHOLOGY YES; Platelet Count 237 K/mm3 (150-450); Red Blood Count 4.64 M/mm3 (4.6-6.2); White Blood Count 6.1 K/mm3 (4.4-11.0)
[2020-03-17 16:35] LABS: Differential Indicated SCAN CRITERIA MET
[2020-03-17 16:38] LABS: Anion Gap 8 (5-15); BUN 10 mg/dL (7-18); BUN/Creat Ratio 12.8 RATIO (10-20); Calcium,Total 9.2 mg/dL (8.5-10.1); Chloride 94 mmol/L (98-107); Creatinine, Serum 0.78 mg/dL (0.70-1.30); EST Glomerular Filtration Rate 106 mL/min (>60); Est Glom Filt Rate - Afr Amer 129 mL/min (>60); Estimated Creatinine Clearance 85.05 ml/min; Glucose 95 mg/dL (74-106); Potassium 4.8 mmol/L (3.5-5.1); Sodium Level 128 mmol/L (136-145)
--- NOTE | 2020-03-17 16:45 | RAD_ITS ---
STUDY: X-RAY CHEST REASON FOR EXAM: Male, 64 years old. LEFT FLANK PAIN SINCE YESTERDAY, HIGH BLOOD PRESSURE TECHNIQUE: Frontal view of the chest COMPARISON: October 11 2018 FINDINGS: The lungs are clear and hyper expanded. There is no demonstrated pleural abnormality. There is a benign calcified chordoma in the right upper lung laterally. Normal size heart. Normal mediastinum and josé miguel. Normal visualized pulmonary arteries. Normal visualized aortic arch and descending thoracic aorta. Normal visualized thoracic spine. Normal visualized ribs, clavicles, and shoulders. There is no demonstrated abnormality of the visualized soft tissue structures of the upper abdomen. RAD/Chest 1 View (Portable) IMPRESSION: Moderate to severe emphysema. No acute findings. Electronically Signed: Gonzalez Shipman, at 17:10 EDT Tel , Service support ,
[2020-03-17 16:53] LABS: Differential Comment SCANNED
--- NOTE | 2020-03-17 17:39 | ED.DCSUM_ITS ---
- ER Visit Summary Date of Service: 03/17/20 Chief Complaint: Left flank pain History of Present Illness: The patient is a 64 M who goes to the [place]. He reports he has left flank pain that began yesterday. Is a sharp, stabbing pain is 10 of 10 at worst and 5-10 currently. Is worsened by movement or rolling over or coughing. Is relieved by sitting up. He reports he is been nausea and vomited once today. No blood in his emesis. His last bowel was today. No melena medic easy. Reports he has had frequent urination, but no dysuria. States he feels as though he cannot empty his bladder. On review of systems patient denies any fever or chills. He reports he had a nonproductive cough for the past 2 days. He denies any chest pain or shortness of breath. Physical Examination: Vitals: Stable. Afebrile. General: Well-nourished and well-developed. Head: Normocephalic atraumatic. Neck: Supple, no lymphadenopathy. No JVD. Nontender. Cardiovascular: Regular rate and rhythm. No murmurs. Respiratory: No respiratory distress. Clear to auscultation bilaterally. Abdominal: Soft, nontender, nondistended, normal bowel sounds. No guarding, rebound, or peritoneal signs. Back: Mild left CVA tenderness. No vertebral tenderness. Extremities: Nontender, no edema. Skin: Normal color, no rash. Neurologic: Alert and oriented ?3. Cranial nerves II through XII are intact. Normal strength and sensation. Psych: Normal affect. Test Results: CBC shows basophils of 2. Chem-7 shows a sodium of 128 and chloride of 94. UA shows ketones. Clinical Impression(s) from Imaging Studies Abdomen/Pelvis CT 03/17/20 15:59 IMPRESSION: No acute abdominal findings. Severe hepatic steatosis. Hepatology referral is advised. Emphysema. Electronically Signed: Gonzalez Shipman at 17:09 EDT Tel , Service support , Chest X-Ray 03/17/20 16:45 IMPRESSION: Moderate to severe emphysema. No acute findings. Electronically Signed: Gonzalez Shipman, at 17:10 EDT Tel , Service support , Emergency Department Course and Treatment: I discussed the fatty liver with the patient. He does realize that he has this. He reports that he drinks 6 beers per day. He is also had hyponatremia in the past from this. Discussed the patient that his CT does not show a kidney stone. He does not have a UTI. He has not been able to urinate here and empty his bladder well. He had a Felix catheter placed with return of 500 cc. Treatment Plan: Patient will be discharged with instructions to follow-up the [facility] in 3 to 5 days if not improving. He is also instructed to follow-up with Dr. Quintero in 3 to 5 days for Felix removal. I will not place him on any opiate-based medications as he does drink daily. Instructed to use a heating pad and TENS unit. Return to the emergency department for any worsening s ymptoms. Disposition: To home in improved and stable condition. Impression: 1. Left flank pain, musculoskeletal. 2. Alcoholism. 3. Fatty liver. 4. Hyponatremia. 5. Urinary retention. This note was generated with [employer] dictation software. It may contain incorrect words, spelling, and punctuation that were not noted in review of the chart prior to signing ED Disposition - Plan for ED Patient: Instructions: ED Flank Pain Uncertain Cause, ED Urinary Retention Male Referrals: [facility],[place] [Primary Care Provider] - 3-5 Days if not improving Jay Quintero MD [STAFF PHYSICIAN] - 3-5 Days
[2020-03-17 18:00] VITALS: BP 185/101; PULSE 82; RESP 17; O2SAT 98
[2020-03-17] MEDS: Lidocaine Jelly 2% 20 ML Syringe (URO-JET) 20 APPLIC TOPICAL (18:02)
== END 2020-03-17 18:33 | disposition home or self-care (01) ==
PROVIDERS: Emergency Provider Emergency Medicine
DX: R10.9 Unspecified abdominal pain (principal); F10.20 Alcohol dependence, uncomplicated; K76.0 Fatty (change of) liver, not elsewhere classified; E87.1 Hypo-osmolality and hyponatremia; R33.9 Retention of urine, unspecified; I25.10 Atherosclerotic heart disease of native coronary artery without angina pectoris; J44.9 Chronic obstructive pulmonary disease, unspecified; E78.00 Pure hypercholesterolemia, unspecified; Z79.82 Long term (current) use of aspirin; Z79.899 Other long term (current) drug therapy; F17.200 Nicotine dependence, unspecified, uncomplicated
CPT/HCPCS: 51702; 71045; 74176; 80048; 81001; 85025; 96361; 96374; 96375; 99285; J7030; A4216; J2405

== ENCOUNTER 2020-03-22 19:59 | Emergency (ER) | payer OTHER, SELFPAY ==
[2020-03-22 20:00] VITALS: BP 106/77; PULSE 90; RESP 16; TEMP 36.7; O2SAT 97; BMI 21.1
[2020-03-22 20:10] LABS: Mucous, Urine 0 SEEN /hpf (<or=2+); Squamous Epithelial Cells - UA 0 SEEN /hpf (0-5)
[2020-03-22 20:11] LABS: Color, Urine Straw (Yellow); Glucose, Dipstick Normal (Normal); Ketone-Dipstick Negative (Negative); Leukocyte Esterase-Dipstick 500 /ul (Negative); Nitrite-Dipstick Negative (Negative); Occult Blood-Urine 250 /ul (Negative); Protein-Dipstick 100 mg/dl (Negative); Specific Gravity, Urine 1.005 (1.002-1.030); Urine Bilirubin Dipstick Negative (Negative); Urine Clarity Cloudy (Clear); Urine Urobilinogen Normal (Normal); Urine pH 6.5 (5.0 - 8.0)
[2020-03-22 20:31] LABS: Bacteria RARE /hpf (None Seen); Red Blood Cells-Urine 5-10 SEEN /hpf (0-5); White Blood Cells >100 SEEN /hpf (0-5)
--- NOTE | 2020-03-22 21:30 | ED.RN ---
patient contacted and notified about concern for UTI. Dr. Stevens reviewed the UA results. Patient advised to follow up with PCP or ED doctor for treatment. Pt aware of results. [facility]
--- NOTE | 2020-03-22 21:35 | ED.VISSUMM ---
- ER Visit Summary Date of Service: 03/22/20 This patient presented on a very busy night, and left from the waiting room without being seen after waiting for under 1.5 hours. I ordered urinalysis and a bladder scan on the patient without seeing him, while he was in the waiting room. I had asked nursing to perform the bladder scan since I saw his urinalysis returned showing infection, so that I could see him even if he was still in the waiting room. They went to grab him to put him in a room because he was next, and it was noted that he eloped. Nurses called the patient, discussing this with him, and the fact that he would need to be seen in order for us to treat him. He refused to return. ED Disposition - Plan for ED Patient: Disposition: LEFT WITHOUT BEING SEEN [facility]: [facility] [Primary Care Provider] -
== END 2020-03-22 21:34 | disposition left against medical advice (07) ==
PROVIDERS: Emergency Provider Emergency Medicine
DX: Z53.21 Procedure and treatment not carried out due to patient leaving prior to being seen by health care provider (principal)
CPT/HCPCS: 81001

== ENCOUNTER 2020-04-08 22:56 | Emergency (ER) | payer OTHER, SELFPAY ==
[2020-04-08 22:57] VITALS: BP 157/92; PULSE 71; RESP 18; TEMP 36.6; O2SAT 97; BMI 19.2
--- NOTE | 2020-04-08 23:14 | ED.VISSUMM ---
- ER Visit Summary Date of Service: 04/08/20 Chief Complaint: Right rib pain History of Present Illness: The patient is a 64 M who presents with right rib pain that has been constant for the past 3 days. Patient states he slipped on a tile in his bathroom and hit his right ribs on the edge of his bathtub. Patient states his pain is sharp. Patient states the pain is worse with coughing, deep breathing, and movement. Patient states he has been taking Tylenol with no relief of his pain. Patient denies any head injury or loss of consciousness. Patient denies any other injuries. Physical Examination: Vital signs are stable. Patient is afebrile. Patient is in no acute distress. Oral mucosa is pink and moist. Neck is supple. Trachea is midline. There is no JVD. Heart was regular rate and rhythm. Lungs showed scattered rhonchi. There is adequate respiratory effort. There is reproducible tenderness over the right lower ribs. There is no bony crepitance or step-off. Abdomen is soft. Bowel sounds are normal. There is no tenderness. Cranial nerves II through XII are intact. There are no focal motor or sensory deficits. Test Results: X-rays of the right ribs were obtained. There is a nondisplaced fracture of the right 10th rib. There is no pneumothorax. These were interpreted by the radiologist and reviewed by myself. Emergency Department Course and Treatment: Patient was given a dose of [place] here. Patient was given a prescription for [place]. Patient was instructed to take 10-15 deep breaths every hour while awake to prevent atelectasis and pneumonia. Patient was instructed to follow-up with his primary care physician in 5 to 7 days. Patient understood and was agreeable with the plan. All questions were answered. Disposition: Discharge home Impression: Right 10th rib fracture This note was generated with [employer] dictation software. It may contain incorrect words, spelling, and punctuation that were not noted in review of the chart prior to signing ED Disposition - Plan for ED Patient: Disposition: Home or Assisted Living Diagnosis: Right rib fracture Instructions: ED Rib Fx Prescriptions: Hydrocodone Bitart/Apap 5-325 [[place] 5MG-325MG] 1 tab PO Q6H PRN PRN 3 Days #10 tab PRN Reason: Pain Prescription Printed [facility]errals[facility] [Primary Care Provider] - 5-7 Days
--- NOTE | 2020-04-08 23:25 | RAD_ITS ---
STUDY: X-RAY - UNILATERAL RIBS ( RIGHT ) WITH CHEST REASON FOR EXAM: Male, 64 years old. FELL ON LEDGE OF BATH TUB ON THURSDAY. C/O RIGHT SIDED RIB PAIN WHEN COUGHING AND TAKING A DEEP BREATH TECHNIQUE - RIBS: 4 view(s) of the ribs. TECHNIQUE - CHEST: Single frontal view of the chest. COMPARISON: 03/17/2020 FINDINGS - RIBS: Nondisplaced fracture of the 10th rib cage laterally. FINDINGS - CHEST: Calcified granuloma right upper lobe. The lungs are clear and expanded. There is no demonstrated pleural abnormality. Normal size heart. Normal mediastinum and josé miguel. Normal visualized pulmonary arteries. Normal visualized aortic arch and descending thoracic aorta. Normal visualized thoracic spine. Normal visualized ribs, clavicles, and shoulders. There is no demonstrated abnormality of the visualized soft tissue structures of the upper abdomen. RAD/Ribs Uni Min 3V w/PA Chest IMPRESSION: RIBS: Fracture 10th rib laterally CHEST: Normal x-ray examination of the chest. Electronically Signed: Cristóbal Calles MD at 23:57 EDT , Service support ,
[2020-04-09 00:54] VITALS: BP 122/81; PULSE 79; RESP 15; O2SAT 97
[2020-04-09] MEDS: HYDROcodone Bitartrate/Apap 5/325 Tablet PO (00:56)
== END 2020-04-09 00:59 | disposition home or self-care (01) ==
PROVIDERS: Emergency Provider Emergency Medicine
DX: S22.31XA Fracture of one rib, right side, initial encounter for closed fracture (principal); W01.198A Fall on same level from slipping, tripping and stumbling with subsequent striking against other object, initial encounter; Y93.9 Activity, unspecified; Y92.9 Unspecified place or not applicable; I25.10 Atherosclerotic heart disease of native coronary artery without angina pectoris; Z79.82 Long term (current) use of aspirin; Z79.899 Other long term (current) drug therapy; F17.200 Nicotine dependence, unspecified, uncomplicated
CPT/HCPCS: 71101; 99284

== ENCOUNTER 2021-04-19 13:43 | Emergency (ER) | payer OTHER, SELFPAY ==
[2021-04-19 13:43] VITALS: BP 149/79; PULSE 74; RESP 28; TEMP 36.3; O2SAT 94; BMI 18.8
[2021-04-19 13:56] VITALS: BP 149/79; PULSE 74; RESP 28; TEMP 36.3; O2SAT 94
[2021-04-19 14:00] VITALS: O2SAT 94
--- NOTE | 2021-04-19 14:03 | RAD_ITS ---
History: SOB EXAMINATION/TECHNIQUE: XR Chest 1 View: Portable COMPARISON: April 08, 2020 FINDINGS: LINES/DEVICES: None. LUNGS: No consolidation, edema or effusion. Hyperlucency within the upper lobe suggesting pulmonary emphysema. No pneumothorax. MEDIASTINUM AND CARDIOVASCULAR STRUCTURES: Cardiac silhouette not enlarged. Central airways and mediastinal contour are unremarkable. BONES AND SOFT TISSUES: Unremarkable. RAD/Chest 1 View (Portable) IMPRESSION: No radiographic evidence of acute cardiopulmonary disease. Pulmonary emphysema. at 1433 Reported and signed by: Chuy Russell MD Electronically Signed: Chuy Russell MD at 14:31 EDT Tel , Service support ,
[2021-04-19 14:14] LABS: Absolute Lymphocyte Count 3.65 X10^3/uL (0.83-4.51); Absolute Neutrophil Count 2.8 X10^3/uL (2.0-7.7); Basophil# 0.12 X10^3/uL; Basophil% 1.6 % (0-1); Eosinophil# 0.29 X10^3/uL; Eosinophils% 3.8 % (0-5); Hematocrit 41.7 % (40-54); Hemoglobin 14.2 g/dL (13.0-16.5); Lymphocyte # 3.65 X10^3/ul (0.83-4.51); Lymphocyte % 47.9 % (19-41); Mean Corp Hgb Conc 34.1 g/dL (32-36); Mean Corpuscular Hgb 30.9 pg (27.0-32.0); Mean Corpuscular Volume 90.8 fL (80-94); Mean Platelet Vol. 10.1 fl (6.2-12.0); Monocyte# 0.74 X10^3/uL; Monocyte% 9.7 % (0-10); NRBC Flagged by Analyzer 0 % (0-5); Neutrophil % 36.7 % (47-70); POSITIVE MORPHOLOGY YES; Platelet Count 303 K/mm3 (150-450); RBC Distribution Width CV 12.8 % (11.6-14.6); RBC Distribution Width SD 42.4 fl (35.1-43.9); Red Blood Count 4.59 M/mm3 (4.6-6.2); White Blood Count 7.6 K/mm3 (4.4-11.0)
[2021-04-19 14:15] LABS: Differential Indicated SCAN CRITERIA MET
[2021-04-19 14:23] LABS: AST(SGOT) 36 U/L (15-37); Alanine Aminotransfer ALT/SGPT 46 U/L (16-61); Albumin, Serum 3.9 g/dL (3.2-5.0); Alkaline Phosphatase 91 U/L (45-117); Anion Gap 6 (5-15); BUN 7 mg/dL (7-18); BUN/Creat Ratio 7.8 RATIO (10-20); Calcium,Total 8.9 mg/dL (8.5-10.1); Chloride 98 mmol/L (98-107); EST Glomerular Filtration Rate 90 mL/min (>60); Est Glom Filt Rate - Afr Amer 109 mL/min (>60); Estimated Creatinine Clearance 64.88 ml/min; Globulin 4.1 g/dL (2.2-4.2); Glucose 99 mg/dL (74-106); Potassium 4.2 mmol/L (3.5-5.1); Sodium Level 129 mmol/L (136-145)
[2021-04-19 14:32] LABS: Reactive Lymphocyte 1+
--- NOTE | 2021-04-19 14:33 | EKG12_ITS ---
Test Reason : SOB Blood Pressure : / mmHG Vent. Rate : 069 BPM Atrial Rate : 069 BPM P-R Int : 138 ms QRS Dur : 082 ms QT Int : 426 ms P-R-T Axes : 078 085 079 degrees QTc Int : 456 ms Normal sinus rhythm Normal ECG Confirmed by MEME MARTINEZ, KARL ([id number]), photographic editor VIVIANE CARDENAS ([id number]) on 04/23/2021 8:36:32 AM Referred By: ANTONIO Confirmed By:DUSTIN VALENTINE MD
[2021-04-19] MEDS: MethylPREDNISolone 125 MG/2 ML Vial IV (14:44)
[2021-04-19] MEDS: Ipratropium/Albuterol Sulfate 3 ML AMPUL.NEB INHALATION (14:49)
[2021-04-19] MEDS: Albuterol 2.5 MG/3 ML VIAL.NEB. INHALATION ×3 (14:49)
[2021-04-19 14:58] VITALS: PULSE 75; RESP 19
--- NOTE | 2021-04-19 15:03 | EDS_ITS ---
HPI History of Present Illness Chief Complaint: Shortness of Breath Informant: patient Onset/Context/Timing Onset: Hours Context: sudden Timing: Continuous Quality: Positive for Dyspnea on exertion Current Severity: Mild Maximum Severity: Moderate Worsened by: Exertion and Coughing Relieved by: Nothing Associated Symptoms cough; Negative for rhinorrhea, post nasal drip, ear pain, fever, sore throat, subjective, chills, sweats, clear sputum, white sputum, yellow sputum or green sputum Chest Pain: Positive for None Narrative Narrative: Patient is a 65-year-old male who is a smoker of 1 pack/day and presents with shortness of breath. He has history of COPD. He has not seen a physician in approximately 6 months. Has not been on prednisone recently. He denies history of VTE. He denies leg pain, swelling discoloration. He denies weight loss or night sweats. He denies headache, photophobia, visual change. Denies ringing his ears, decreased hearing or drainage from his ears. He denies rhinorrhea, congestion, postnasal drainage. He denies sore throat. He denies chest pain of any type. He denies nausea, vomiting or diarrhea. He denies abdominal pain. He denies urinary symptoms. PE Risk Factors: Negative for Cancer, OCP + Smoking + > 35, Prior DVT or PE, Recent immobilization, Recent surgery and Recent travel Prior similar symptoms: Yes (COPD exacerbation.) Recent Illness/Hospitalization: No PFSH PFSH Medical History Congestive heart failure (CHF) COPD (chronic obstructive pulmonary disease) Smoker Home Medications amlodipine 5 mg PO DAILY 02/15/17 [History Last Taken 12/31/17] aspirin [Aspir-Low] 81 mg PO DAILY 02/15/17 [History Last Taken 02/15/17 06:00] carvedilol [Coreg] 3.125 mg PO BID 02/15/17 [History Last Taken 12/31/17] tamsulosin 0.4 mg PO BID 02/15/17 [History Last Taken 12/30/17] folic acid 1 mg PO DAILY@0800 #14 tab 01/01/18 [Rx Last Taken Unknown] isosorbide mononitrate 30 mg PO DAILY #30 tab 01/01/18 [Rx Last Taken Unknown] multivitamin,si-qrdh-lbhnzykl 1 tab PO DAILYCM #30 tab 01/01/18 [Rx Last Taken Unknown] thiamine HCl (vitamin B1) 100 mg PO DAILY #14 tab 01/01/18 [Rx Last Taken Unknown] benzonatate 200 mg PO TID PRN PRN #20 capsule 10/11/18 [Rx Last Taken Unknown] prednisone 60 mg PO DAILY #15 tablet 04/19/21 [Rx Last Taken Unknown] Allergy/AdvReac Type Severity Reaction Status Date / Time No Known Allergies Allergy Verified 04/08/20 23:01 Social History (Updated 04/19/21 @ 15:[address] Timo Cotton MD) household members: none housing: apartment Smoking Status: Current every day smoker tobacco type: cigarettes alcohol intake: current details: Not recently substance use type: does not use ROS ROS ED Constitutional Constitutional ED: Denies chills, fever(s), sweats or weight loss Eyes Eyes: Denies blurry vision, change in vision or diplopia ENT ENT ED: Denies ear pain, rhinorrhea or sore throat Cardiovascular Cardiovascular: Denies chest pain, orthopnea, palpitations, paroxysmal nocturnal dyspnea or racing heartbeat Respiratory/Chest Respiratory/Chest: Reports cough, dyspnea and dyspnea on exertion; Denies orthopnea, paroxysmal nocturnal dyspnea or sputum Gastrointestinal Gastrointestinal: Denies abdominal pain, diarrhea, melena, nausea or vomiting Genitourinary Genitourinary ED: Denies dysuria, hematuria or urinary frequency Musculoskeletal Musculoskeletal: Denies arthralgias, back pain, myalgias or neck pain Integumentary Denies rash Neurologic Neurologic: Denies headache(s) or weakness Psychiatric Psychiatric: Denies anxiety or depression Hematologic/Lymphatic Hematologic/Lymphatic: Denies easy bleeding or easy bruising Allergic/Immunologic Allergic/Immunologic ED: Denies urticaria EXAM Physical Exam Const Vital Signs: 04/19/21 13:43 04/19/21 13:56 04/19/21 14:00 Temperature 97.3 F L 97.3 F L Temperature Source Temporal Temporal Pulse Rate 74 74 Respiratory Rate 28 H 28 H Respiratory Effort Short of Breath Respiratory Depth Deep Respiratory Pattern Tachypnea Blood Pressure 149/79 H 149/79 H Blood Pressure Mean 102 102 Pulse Ox 94 94 Oxygen Delivery Method Room Air Room Air Nasal Cannula Oxygen Flow Rate (L/min) 2 04/19/21 14:58 Temperature Temperature Source Pulse Rate 75 Respiratory Rate 19 H Respiratory Effort Respiratory Depth Respiratory Pattern Normal Blood Pressure Blood Pressure Mean Pulse Ox Oxygen Delivery Method Oxygen Flow Rate (L/min) Positive well developed and cachectic; Negative for well nourished General Appearance ED: well developed and cachectic Nutritional Appearance: cachectic HEENT Reports TM's clear and moist mucous membranes HEENT Narrative: Ears are normal. TMs normal. Nares patent no discharge. Posterior pharynx no erythema or exudate. atraumatic Tympanic Membrane ED: Yes TM's clear Eyes PERRL and EOMs intact bilaterally General Eye ED: Negative for pale conjunctiva or scleral icterus Neck no lymphadenopathy, supple, no meningeal signs and no JVD Resp No normal respiratory effort and No clear to auscultation bilaterally Auscultation: wheezes expiratory wheezes, inspiratory wheezes and throughout Cardio regular rate, regular rhythm, S1 normal heart sound, S2 normal heart sound and no murmurs GI non-tender, non-distended and no masses Auscultation: normoactive bowel sounds Palpation: soft Back/Spine no CVA tenderness and normal to inspection Extremity normal to inspection Extremity Narrative: There is no asymmetry, swelling, discoloration, leg vein distention, palpable cords or tenderness along the distribution of the deep venous system. General Extremety ED: Negative for edema or tenderness General Extremity: Negative for edema Neuro oriented x3, CN's II-XII intact bilaterally and no sensory deficits noted Sensorium / Orientation: alert Motor Exam: strength 5/5 throughout Psych mental status grossly normal Thought Process: normal thought process Skin no wounds Lesions: no lesions Rashes: no rashes MDM MDM MDM Narrative Medical decision making narrative: Differential diagnoses include COPD, pneumothorax, pulmonary embolus, pneumonia. To evaluate patient blood work was obtained, chest x-ray and EKG to rule out ischemia. Since patient is hypoxic and has a poor waveform and concern for CO2 retention will obtain ABG to assess pH, CO2 and anion gap. Patient was treated with Solu-Medrol, DuoNeb and albuterol aerosol treatments. Patient was reassessed at 1616. He is no longer wheezing. Pulse ox is 100%. Respirate 18. He is slightly tachycardic. This may be due to the aerosol treatments. Plan is to discharge to home with prescription for prednisone. Lab Data Attestation: I reviewed the patient's lab results. Labs: Laboratory Results - last 24 hr 04/19/21 04/19/21 04/19/21 14:00 14:00 14:41 WBC 7.6 RBC 4.59 L Hgb 14.2 Hct 41.7 MCV 90.8 MCH 30.9 MCHC 34.1 RDW Std Deviation 42.4 RDW Coeff of Nacho 12.8 Plt Count 303 MPV 10.1 Immature Gran % (Auto) 0.300 Neut % (Auto) 36.7 L Lymph % (Auto) 47.9 H Mcminn % (Auto) 9.7 Eos % (Auto) 3.8 Baso % (Auto) 1.6 H Absolute Neuts (auto) 2.8 Absolute Lymphs (auto) 3.65 Nucleated RBC % 0 Reactive Lymphocytes 1+ Sodium 129 L Potassium 4.2 Chloride 98 Carbon Dioxide 25.0 Anion Gap 6 BUN 7 Creatinine 0.90 Estim Creat Clear Calc 64.88 Est GFR (MDRD) Af Amer 109 Est GFR (MDRD) Non-Af 90 BUN/Creatinine Ratio 7.8 L Glucose 99 Lactic Acid 1.5 Calcium 8.9 Total Bilirubin 0.40 AST 36 ALT 46 Alkaline Phosphatase 91 Total Protein 8.0 Albumin 3.9 Globulin 4.1 Albumin/Globulin Ratio 1.0 ABG reveals a mild respiratory alkalosis. pH 7.46, PCO2 30.9, PaO2 67.3 with a bicarb of 21.8 and base excess of -2. O2 saturation is 94.3% on 2 L of oxygen by nasal cannula. ABG Data ABG results: ABG 04/19/21 15:22 Specimen Type ART Sample Site L Radial pH 7.46 H Bicarbonate Actual 21.8 L Total CO2 23 Base Excess -2 O2 Saturation 94 L ABG pCO2 30.9 L ABG pO2 67 L Russell Test Positive O2 Delivery Device Cannula Liter Flow 2.0 Radiography Chest X-Ray - ED: 1 View, Read by ED Physician, Normal, Heart, Mediastinum, Bony Structures and Chronic Changes Diagnostic Testing: Radiology Impression Chest X-Ray 04/19/21 14:03 IMPRESSION: No radiographic evidence of acute cardiopulmonary disease. Pulmonary emphysema. at 1433 Reported and signed by: Chuy Russell MD Electronically Signed: Chuy Russell MD at 14:31 EDT Tel , Service support , EKG Initial EKG: Attestation: I personally reviewed and interpreted this EKG as follows: Interpretation: Sinus Rhythm (The EKG is normal. Ventricular a 69. KS interval 138 ms. Cures duration 82 ms. QT duration 426 ms. [place] is normal.) Discharge Plan Triage Chief Complaint: Shortness of Breath ED Provider: Timo Cotton Dx/Rx/DC Orders Clinical Impression: Acute exacerbation of chronic obstructive pulmonary disease (COPD) Instructions: ED COPD Flare Prescriptions: New prednisone 20 MG tablet 60 mg PO DAILY Qty: 15 RF: 0 No Action amlodipine 5 MG tablet 5 mg PO DAILY RF: 0 aspirin [Aspir-Low] 81 MG tablet,delayed release (DR/EC) 81 mg PO DAILY RF: 0 carvedilol [Coreg] 3.125 MG tablet 3.125 mg PO BID RF: 0 tamsulosin 0.4 MG capsule 0.4 mg PO BID RF: 0 isosorbide mononitrate 30 MG tablet 30 mg PO DAILY Qty: 30 RF: 0 thiamine HCl (vitamin B1) 100 MG tablet 100 mg PO DAILY Qty: 14 RF: 0 folic acid 1 MG tablet 1 mg PO DAILY@0800 Qty: 14 RF: 0 multivitamin,ri-mmpw-gprippjv 1 TABLET tablet 1 tab PO DAILYCM Qty: 30 RF: 0 benzonatate 100 MG capsule 200 mg PO TID PRN PRN (Reason: Cough) Qty: 20 RF: 0 [facility] Care Provider[facility]errals[facility] [Primary [facility] Provider] - 3-5 Days if not improving Disposition Disposition: Home, Self Care
[2021-04-19 15:26] LABS: Lactic Acid 1.5 mmol/L (0.4-1.9)
[2021-04-19 15:26] LABS: Allen Test Positive; Base Excess -2 mmol/L (-2 to +2); Bicarbonate 21.8 mmol/L (22-26); Blood Gas Specimen Type ART; O2 Delivery Device Cannula; PO2 67 mmHG (75-100); SITE L Radial; SO2 94 % (95-99); Total Carbon Dioxide 23 mmol/L; pCO2 30.9 mmHg (35-45); pH 7.46 (7.35-7.45)
[2021-04-19 16:30] VITALS: BP 139/82; PULSE 76; RESP 19; O2SAT 95
== END 2021-04-19 16:32 | disposition home or self-care (01) ==
PROVIDERS: Emergency Provider Emergency Medicine
DX: J44.1 Chronic obstructive pulmonary disease with (acute) exacerbation (principal); F17.210 Nicotine dependence, cigarettes, uncomplicated
CPT/HCPCS: 36600; 71045; 80053; 82803; 83605; 85025; 87426; 93005; 94640; 96374; 99284; A4216

== ENCOUNTER → 2023-03-04 | Outpatient (CLI) | payer OTHER, SELFPAY ==
--- NOTE | 2023-03-04 11:33 | BD_ITS ---
STUDY: DUAL ENERGY X-RAY ABSORPTIOMETRY / DXA REASON FOR EXAM: Male, 67 years old. 733.90OsteopeniaBONE DENSITY REASON FOR EXAM TECHNIQUE: Bone Mineral Density (BMD) measurements of lumbar spine and left hip were obtained. COMPARISON: None. FINDINGS: Lumbar Spine (L1-L4): g/cm2 (0.866) / T-score (-2.0) / Z-score (-1.3) Findings are suggestive of osteopenia with a moderate fracture risk. Left Femur Total: g/cm2 (0.848) / T-score (-1.2) / Z-score (-0.7) Left Femoral Neck: g/cm2 (0.682) / T-score (-1.8) / Z-score (-0.8) BD/Dexa Bone Density Study IMPRESSION: The patient is considered osteopenic as outlined below according to World [employer] Organization (WHO) criteria with a moderate fracture risk. Reference Information: The T-score is the number of standard deviations above or below the standard which is normal for young adults at their peak bone mineral density. The World Health Organization (WHO) interprets the T-scores as follows: Above -1 Normal bone density Between -1 and -2.5 Osteopenia Equal to / or below -2.5 Osteoporosis As a practical clinical guideline, osteopenia may be graded as follows: Mild -1 through -1.5 Moderate -1.6 through -2.0 Severe -2.1 through -2.4 The Z-score is the number of standard deviations above or below age-matched controls. A Z-score of less than -1.5 would be considered abnormal. References: 1. NIH Osteoporosis and Related Bone Diseases www osteo.org 2. International Society for Clinical Densitometry www iscd.org 3. National Osteoporosis Foundation www nof.org Electronically Signed: Carlos Eduardo Currie MD at 10:17 EDT ,
== END | disposition home or self-care (01) ==
LOC: OPBD 11:23
PROVIDERS: PCP Internal Medicine; Referring Provider Internal Medicine; Visit Provider Internal Medicine
DX: M85.80 Other specified disorders of bone density and structure, unspecified site (principal)
CPT/HCPCS: 77080

== ENCOUNTER → 2023-03-18 | Outpatient (CLI) | payer OTHER, SELFPAY ==
--- NOTE | 2023-03-18 17:47 | CT_ITS ---
STUDY: CT CHEST, ABDOMEN T PELVIS WITH CONTRAST REASON FOR EXAM: Male, 67 years old. WEIGHT LOSS. PRIOR PARTIAL BOWEL OBSTRUCTION RADIATION DOSAGE (If Supplied By Facility): CTDIvol = ( 8.47 ) mGy, DLP = ( 1102.41 ) mGycm TECHNIQUE: Transaxial imaging was performed following intravenous administration of IV 100mL Isovue-300. Multiplanar coronal and sagittal images were reformatted. Individualized dose optimization techniques were used for this CT. COMPARISON: No relevant priors. FINDINGS: CHEST Hyperinflation and mild degree of emphysema. Mild increased linear markings in the anterior medial aspect of the right middle lobe suggestive of scarring. Calcified granuloma in the peripheral lateral aspect of the right upper lobe. There is no demonstrated pleural abnormality. There are calcifications of the coronary arteries. Normal mediastinum. Calcified right hilar lymph nodes. Normal unenhanced pulmonary arteries. Normal aorta arch and descending thoracic aorta. There are degenerative changes of the thoracic spine. Fatty infiltration of the liver. ABDOMEN There is decreased attenuation of the liver consistent with steatosis. Normal gallbladder and extrahepatic biliary system. There are multiple benign calcified granulomata of the spleen. Normal pancreas. Normal bilateral adrenal glands. Normal right kidney. Normal left kidney. Normal visualized stomach. Normal small intestine. There are scattered colonic diverticula consistent with diverticulosis. The appendix is visualized and appears normal. There is diffuse atherosclerotic calcification of the abdominal aorta, without a demonstrated aneurysm. Normal inferior vena cava. Normal retroperitoneum. Small bilateral inguinal hernias contain fat. There are mild straightening of the normal lumbar lordosis. Degenerative changes of the visualized lumbar spine. PELVIS Distended urinary bladder. There is a 4.9 cm x 2.4 cm left-sided bladder diverticulum. Prostatic enlargement causing indentation at the bladder base. Faint central prostatic calcifications are seen. There is no pelvic fluid. There is no pelvic lymphadenopathy or mass lesion. There is diffuse atherosclerotic calcification of the pelvic arteries. CT/CT Chest, Abd, Pel w/Contrast IMPRESSION: Mild increased markings in the anterior medial aspect of the right middle lobe suggestive of scarring. Fatty infiltration of the liver. Distended urinary bladder with a left-sided bladder diverticulum measuring 4.9 cm x 2.4 cm. Prostatic enlargement with faint calcification Electronically Signed: Carlos Eduardo Currie MD at 14:17 EDT ,
--- NOTE | 2023-03-18 17:48 | CT_ITS ---
STUDY: CT BRAIN WITH AND WITHOUT CONTRAST REASON FOR EXAM: Male, 67 years old. DIZZY. PRIOR [place] SURGERY OF BRAIN RADIATION DOSAGE (If Supplied By Facility): CTDIvol = ( 44.99 ) mGy, DLP = ( 1634.44 ) mGycm TECHNIQUE: Transaxial CT imaging of the brain was performed pre and post contrast administration. The examination was performed with intravenous administration of IV 100mL Isovue-300. Individualized dose optimization techniques were used for this CT. COMPARISON: Comparison is made with prior study dated December 31, 2017. FINDINGS: Normal soft tissue structures. The patient is status post right posterior temporal parietal craniotomy. There is moderate cerebral atrophy with widening of the extra-axial spaces and ventricular dilatation. Normal white matter tracts of the cerebral hemispheres. Normal basal ganglia and thalami. Normal brainstem. Normal cerebellum. There is no intracranial hemorrhage. There are no findings of an acute ischemic infarction. Atherosclerotic calcification of the cavernous portions of the internal carotid arteries bilaterally. Normal visualized paranasal sinuses. CT/Brain/Head W/WO Contrast IMPRESSION: Chronic involutional changes of the brain. Status post right temporoparietal craniotomy. Stable examination. Electronically Signed: Carlos Eduardo Currie MD at 14:10 EDT ,
[2023-03-18 18:13] LABS: EGFR FINGERSTICK > 60.0000 mL/min (>60)
== END | disposition home or self-care (01) ==
LOC: CT 17:44
PROVIDERS: PCP Internal Medicine; Referring Provider Internal Medicine; Visit Provider Internal Medicine
DX: R42 Dizziness and giddiness (principal); R63.4 Abnormal weight loss
CPT/HCPCS: 70470; 71260; 74177; Q9967

== ENCOUNTER → 2023-05-07 | Outpatient (CLI) | payer OTHER, SELFPAY ==
--- NOTE | 2023-05-07 14:51 | CDU_ITS ---
Reason For Study: Dizziness Rt. Velocities/BP Lt. Velocities/BP Prox CCA 62.6/10.7 cm/sec. Prox CCA 60.7/18.2 cm/sec. Mid CCA 48.5/9.7 cm/sec. Mid CCA 51.3/18.2 cm/sec. Dist CCA 47.5/9.7 cm/sec. Dist CCA 45.6/15.4 cm/sec. Prox ICA 71.1/17.3 cm/sec. Prox ICA 59.8/24.8 cm/sec. Mid ICA 51.3/14.5 cm/sec. Mid ICA 68.3/27.7 cm/sec. Dist ICA 56/15.4 cm/sec. Dist ICA 87.2/36.2 cm/sec. Rt. ICA/CCA = 1.46. Lt. ICA/CCA = 1.70. Prox ECA 91/18.2 cm/sec. Prox ECA 78.7/17.3 cm/sec. Rt. Vert. 56/15.4 cm/sec. Lt. Vert. 58.9/17.3 cm/sec. Right Extracranial There is heterogeneous, irregular atherosclerotic plaque noted in the right common carotid artery. There is heterogeneous, irregular atherosclerotic plaque noted in the right internal carotid artery. There is heterogeneous, irregular atherosclerotic plaque noted in the right external carotid artery. Antegrade flow is noted in the right vertebral artery. Left Extracranial There is homogeneous, smooth atherosclerotic plaque noted in the left common carotid artery. There is heterogeneous, irregular atherosclerotic plaque noted in the left internal carotid artery. There is heterogeneous, irregular atherosclerotic plaque noted in the left external carotid artery. Antegrade flow is noted in the left vertebral artery. Procedure This is a Carotid Duplex examination using B-mode, color flow and specral Doppler. Carotid Duplex [id number]. Exam performed in department. VL/Carotid Duplex Ultrasound Interpretation Summary Mild (<50%) stenosis right extracranial internal carotid. Mild (<50%) stenosis left extracranial internal carotid. Patent and antegrade vertebrals bilaterally. Ordering Physician: Ada Diamond Referring Physician: Ada Diamond Performed By: Pati Mcconnell RVT
== END | disposition home or self-care (01) ==
LOC: CVS 14:50
PROVIDERS: PCP Internal Medicine; Referring Provider Internal Medicine; Visit Provider Internal Medicine
DX: R42 Dizziness and giddiness (principal)
CPT/HCPCS: 93880

== ENCOUNTER 2023-12-08 23:56 | Emergency (ER) | payer OTHER, SELFPAY ==
[2023-12-08 23:57] VITALS: BP 151/93; PULSE 81; RESP 17; TEMP 36.4; O2SAT 98; BMI 19.3
--- NOTE | 2023-12-09 00:16 | RAD_ITS ---
STUDY: X-RAY - LEFT HAND REASON FOR EXAM: Male, 68 years old patient with left-sided hand injury. TECHNIQUE: 4 view(s) of the hand. COMPARISON: None. FINDINGS: Normal radiocarpal articulation. Normal distal radioulnar joint. Normal visualized carpal bones. Normal carpal articulations Normal carpometacarpal articulation of the thumb. Normal second through fifth carpometacarpal joints. There is deformity of the distal fifth metacarpal that may be the result of old fracture. Normal metacarpophalangeal joint of the thumb. Normal interphalangeal joint of the thumb. Normal proximal and distal phalanges of the thumb. Normal metacarpophalangeal joints of the second through fifth fingers. There is deformity of the proximal phalanx of the middle finger suggesting acute fracture. There is flexion deformity at the PIP joint of the ring finger. This could be secondary to ligamentous injury. Normal proximal and distal interphalangeal joints of the second, third and fifth fingers. There is soft tissue swelling of the fingers most severe at the middle finger. There is also moderately severe soft tissue swelling of the hand. RAD/Hand Min 3 Views IMPRESSION: 1. Findings suggest nondisplaced fracture of the proximal phalanx of the middle finger. 2. Flexion deformity at the PIP joint of the ring finger suggests possible ligamentous injury. Electronically Signed: May Osei MD at 1:47 EDT ,
--- NOTE | 2023-12-09 00:16 | EDS_ITS ---
HPI History of Present Illness Chief Complaint: Upper Extremity Injury Informant: patient and friend Narrative Narrative: 68-year-old male states he accidentally tripped without any prodromal symptoms and injured his left hand, states this occurred somewhere around 24 hours ago. States he has been feeling okay since then and did not injure anything else, but his hand swollen and painful and he thinks he may have broken it. He is right- hand dominant. Takes aspirin 81 mg daily for cardiac history, but no anticoagulants or other antiplatelet medications. [facility] Medical History Congestive heart failure (CHF) COPD (chronic obstructive pulmonary disease) Eli eli disease Smoker Stroke Home Medications amlodipine 5 mg tablet 5 mg PO DAILY blood pressure 02/15/17 [History Last Taken 12/31/17] aspirin 81 mg tablet,delayed release (Aspir-Low) 81 mg PO DAILY 02/15/17 [Hi story Last Taken 02/15/17 06:00] carvedilol 3.125 mg tablet (Coreg) 3.125 mg PO BID blood pressure 02/15/17 [History Last Taken 12/31/17] tamsulosin 0.4 mg capsule 0.4 mg PO BID prostate 02/15/17 [History Last Taken 12/30/17] folic acid 1 mg tablet 1 mg PO DAILY@0800 #14 tabs 01/01/18 [Rx Last Taken Unknown] isosorbide mononitrate 30 mg tablet,extended release 24 hr 30 mg PO DAILY #30 tabs 01/01/18 [Rx Last Taken Unknown] multivitamin,pw-eezz-aapqmzmv 27 mg-0.4 mg tablet 1 tab PO DAILYCM #30 tabs 01/01/18 [Rx Last Taken Unknown] thiamine HCl (vitamin B1) 100 mg tablet 100 mg PO DAILY #14 tabs 01/01/18 [Rx Last Taken Unknown] benzonatate 100 mg capsule 200 mg (2 x 100 mg) PO TID PRN PRN Cough ##20 10/11/18 [Rx Last Taken Unknown] prednisone 20 mg tablet 60 mg (3 x 20 mg) PO DAILY #15 TABLETS 04/19/21 [Rx Last Taken Unknown] tramadol 50 mg tablet 50 mg PO Q6H PRN pain 2 days #8 tabs 12/09/23 [Rx Last Taken Unknown] Allergy/AdvReac Type Severity Reaction Status Date / Time No Known Allergies Allergy Verified 04/08/20 23:01 Social History household members: none housing: apartment Smoking Status: Current every day smoker tobacco type: cigarettes alcohol intake: current details: Not recently substance use type: does not use ROS ROS ED Constitutional Constitutional ED: Denies chills or fever(s) Musculoskeletal Musculoskeletal: Reports extremity pain; Denies neck pain Integumentary Denies Abrasions, rash or wounds Neurologic Neurologic: Denies paresthesias or weakness EXAM Physical Exam Const Vital Signs: 12/08/23 23:57 Temperature 97.5 F L Temperature Source Temporal Pulse Rate 81 Respiratory Rate 17 Blood Pressure 151/93 H Blood Pressure Mean 112 Pulse Ox 98 Oxygen Delivery Method Room Air Positive well nourished and well developed Constitutional Narrative: Smells of smoke General Appearance ED: well developed and NAD Neck full ROM and supple Resp normal respiratory effort Effort and Inspection: able to speak in complete sentences Back/Spine normal ROM and normal to inspection Extremity Extremity Narrative: Left upper extremity: Swelling, tenderness, ecchymosis to the left hand from MCPJ 2-4, less than #5, ecchymosis is also visible in the distal aspect of the palm opposite the dorsal swollen area. Limited ability to extend fingers 2-5 fully due to pain and swelling, but extensor mechanisms are intact with all of them. FDS, FDP intact with all fingers but again limited ability to bend due to pain. Thumb seems unaffected. He can pronate and supinate without any difficulty or pain in the wrist which is nontender and the rest of the upper extremity is benign and nontraumatic. Neuro oriented x3, no focal motor deficits and no sensory deficits noted Sensorium / Orientation: alert Psych mental status grossly normal and thought process normal Skin no wounds Rashes: no rashes MDM MDM MDM Narrative Medical decision making narrative: Three-view x-ray series of the left hand on my interpretation is negative for any acute fracture or dislocation. He does have evidence of arthritis. In discussion with him and the friend, they both confirm that he has a history of arthritis in both of his hands, and he has some abnormal positioning of fingers that appear to be resting in a splayed position that he states is normal for him. Reassured and requesting pain medication, will give him some tramadol and Moses wrap and instructions for supportive care and follow-up as needed. The friend with him notes that he has been having some dizzy spells. In response the patient states that his fall had nothing to do with that, I just tripped and the friend in response to that states he is honest and will not lie to you. Discharge Plan Triage Chief Complaint: Upper Extremity Injury ED Provider: Aime Stevens Dx/Rx/DC Orders Clinical Impression: Fall from slip, trip, or stumble, Traumatic hematoma of left hand Instructions: ED Hand Contusion Prescriptions: New tramadol 50 mg tablet 50 mg PO Q6H PRN (Reason: pain) 2 Days Qty: 8 0RF No Action amlodipine 5 MG tablet 5 mg PO DAILY Patient Comments: blood pressure/heart aspirin [Aspir-Low] 81 MG tablet,delayed release (DR/EC) 81 mg PO DAILY Patient Comments: heart health carvedilol [Coreg] 3.125 MG tablet 3.125 mg PO BID Patient Comments: blood pressure/heart tamsulosin 0.4 MG capsule 0.4 mg PO BID Patient Comments: prostate isosorbide mononitrate 30 MG tablet 30 mg PO DAILY Qty: 30 0RF thiamine HCl (vitamin B1) 100 MG tablet 100 mg PO DAILY Qty: 14 0RF folic acid 1 MG tablet 1 mg PO DAILY@0800 Qty: 14 0RF multivitamin,ee-zkgn-bfaqvwnq 1 TABLET tablet 1 tab PO DAILYCM Qty: 30 0RF benzonatate 100 MG capsule 200 mg PO TID PRN PRN (Reason: Cough) Qty: 20 0RF prednisone 20 MG tablet 60 mg PO DAILY Qty: 15 0RF Primary Care Provider: Ada Diamond Referrals: Ada Diamond MD [Primary Care Provider] - 10-14 Days if not better Disposition Disposition: Home, Self Care
[2023-12-09] MEDS: traMADol 50 MG Tablet PO (00:32)
== END 2023-12-09 00:40 | disposition home or self-care (01) ==
PROVIDERS: Emergency Provider Emergency Medicine; PCP Internal Medicine; Visit Provider Emergency Medicine
DX: S60.222A Contusion of left hand, initial encounter (principal); I50.9 Heart failure, unspecified; J44.9 Chronic obstructive pulmonary disease, unspecified; Z86.73 Personal history of transient ischemic attack (TIA), and cerebral infarction without residual deficits; Z79.899 Other long term (current) drug therapy; Z79.82 Long term (current) use of aspirin; F17.210 Nicotine dependence, cigarettes, uncomplicated; W19.XXXA Unspecified fall, initial encounter
CPT/HCPCS: 73130; 99282

== ENCOUNTER 2024-05-02 13:59 | Emergency (ER) | payer OTHER, SELFPAY ==
[2024-05-02 14:00] VITALS: BP 138/79; PULSE 84; RESP 16; TEMP 36.6; O2SAT 99; BMI 17.6
--- NOTE | 2024-05-02 14:27 | CT_ITS ---
STUDY: CT ABDOMEN AND PELVIS WITHOUT CONTRAST REASON FOR EXAM: Male, 68 years old. Left flank pain/injury. Recent fall. RADIATION DOSAGE (If Supplied By Facility): CTDIvol = ( 6.04 ) mGy, DLP = ( 289.93 ) mGycm TECHNIQUE: Transaxial images were obtained from the dome of the diaphragm to the symphysis pubis without oral contrast, and without intravenous contrast. Sagittal and coronal images were reconstructed. Individualized dose optimization techniques were used for this CT. COMPARISON: Comparison is made with prior study dated March 17, 2020. FINDINGS: Increased linear markings in the anteromedial aspect of the right middle lobe suggestive of scarring. Coronary artery calcification. Minimal anterior pericardial thickening. There is decreased attenuation of the liver consistent with steatosis. Mild hepatomegaly. Normal gallbladder and extrahepatic biliary system. There are multiple benign calcified granulomata of the spleen. Normal pancreas. Normal bilateral adrenal glands. Normal right kidney. Normal left kidney. There is a small hiatal hernia. Normal small intestine. Normal colon. The appendix is visualized and appears normal. There is diffuse atherosclerotic calcification of the abdominal aorta and its major visceral branches, without a demonstrated aneurysm. Normal inferior vena cava. Normal retroperitoneum. The urinary bladder is distended. There is evidence of a 4.9 cm x 2.1 cm left sided bladder diverticulum. Prostatic enlargement. The prostate measures 4.2 cm x 5.2 cm. This causes indentation at the bladder base. Normal abdominal wall. There are degenerative changes of the visualized lumbar spine. Straightening of the normal lumbar lordosis. CT/Abdomen/Pelvis without Cont IMPRESSION: Hepatomegaly and fatty filtration of the liver. Distended urinary bladder with a left-sided bladder diverticulum. Prostatic enlargement. Electronically Signed: Carlos Eduardo Currie MD at 15:01 EDT ,
--- NOTE | 2024-05-02 14:28 | EX.ED.GENINJ ---
HPI History of Present Illness Chief Complaint: Back Informant: patient Narrative Narrative: 68-year-old male presents by EMS 5 days after he states he lost his balance and had an accidental fall falling into the corner of his dining room table at home, injuring his left low back. He states has been taking acetaminophen for the pain and the pain is still severe not getting any better after 5 days, or with the pain medication that he is taking, and he is concerned he may have damaged something on the inside. He denies any hematuria. No numbness or tingling going down his legs. No injury anywhere else. Hurts more to move. He is able able to get around. There were no prodromal symptoms before the fall, he states he accidentally lost his balance nearby the table. He is on no anticoagulants. [facility] Medical History Eli eli disease Stroke Congestive heart failure (CHF) Smoker COPD (chronic obstructive pulmonary disease) Home Medications ?Medication ?Instructions ?Recorded ?Last Taken ?Type amlodipine 5 mg tablet 5 mg PO DAILY blood pressure 02/15/17 12/31/17 History aspirin 81 mg tablet,delayed 81 mg PO DAILY 02/15/17 02/15/17 06:00 History release (Aspir-Low) carvedilol 3.125 mg tablet (Coreg) 3.125 mg PO BID blood pressure 02/15/17 12/31/17 History tamsulosin 0.4 mg capsule 0.4 mg PO BID prostate 02/15/17 12/30/17 History folic acid 1 mg tablet 1 mg PO DAILY@0800 #14 tabs 01/01/18 Unknown Rx isosorbide mononitrate 30 mg 30 mg PO DAILY #30 tabs 01/01/18 Unknown Rx tablet,extended release 24 hr multivitamin,bq-ogwc-vyaiufbk 27 1 tab PO DAILYCM #30 tabs 01/01/18 Unknown Rx mg-0.4 mg tablet thiamine HCl (vitamin B1) 100 mg 100 mg PO DAILY #14 tabs 01/01/18 Unknown Rx tablet benzonatate 100 mg capsule 200 mg (2 x 100 mg) PO TID PRN PRN 10/11/18 Unknown Rx Cough ##20 tramadol 50 mg tablet 50 mg PO Q6H PRN pain 3 days #12 05/02/24 Unknown Rx tabs Allergy/AdvReac Type Severity Reaction Status Date / Time No Known Allergies Allergy Verified 04/08/20 23:01 Social History household members: none housing: apartment Smoking Status: Current every day smoker tobacco type: cigarettes alcohol intake: current details: Not recently substance use type: does not use ROS ROS ED Constitutional Constitutional ED: Denies chills or fever(s) Eyes Eyes: Denies change in vision or diplopia ENT ENT ED: Denies rhinorrhea or sore throat Cardiovascular Cardiovascular: Denies chest pain or palpitations Respiratory/Chest Respiratory/Chest: Denies cough or dyspnea Gastrointestinal Gastrointestinal: Denies abdominal pain, diarrhea, nausea or vomiting Genitourinary Genitourinary ED: Denies dysuria or hematuria Musculoskeletal Musculoskeletal: Reports back pain; Denies neck pain Integumentary Denies abscess or rash Neurologic Neurologic: Denies headache(s), paresthesias or weakness Psychiatric Psychiatric: Denies anxiety or suicidal thoughts EXAM Physical Exam Const Vital Signs: 05/02/24 14:00 Temperature 97.8 F Temperature Source Oral Pulse Rate 84 Respiratory Rate 16 Blood Pressure 138/79 H Blood Pressure Mean 98 Pulse Ox 99 Oxygen Delivery Method Room Air Positive well nourished, well developed, cachectic and unkempt General Appearance ED: unkempt, well developed, cachectic and NAD Nutritional Appearance: cachectic HEENT Reports moist mucous membranes normocephalic and atraumatic Eyes PERRL and EOMs intact bilaterally Neck full ROM and supple Resp normal respiratory effort and clear to auscultation bilaterally Cardio regular rate, regular rhythm and no murmurs GI non-tender and non-distended Auscultation: normoactive bowel sounds Palpation: soft Back/Spine no CVA tenderness Back/Spine Narrative: Tender to palpation left low paraspinal musculature, below the costal margin, it is normal on inspection there is no Montgomery De Santiago sign and his abdomen is benign. No rib tenderness above this, no spine tenderness to the midline. General Back: other FROM Extremity normal to inspection General Extremety ED: Negative for edema, pulses abnormal or tenderness General Extremity: Negative for edema or pulses abnormal Neuro oriented x3, CN's II-XII intact bilaterally and no sensory deficits noted Sensorium / Orientation: awake and alert Motor Exam: strength 5/5 throughout Psych mental status grossly normal and thought process normal Appearance: unkempt Skin no rashes or lesions noted and no wounds MDM MDM MDM Narrative Medical decision making narrative: Patient concerned about internal injury, performed a CT scan of the abdomen/pelvis, incidental findings are noted, it is negative for any acute injury. I reviewed the images and report which I agree with. Patient is well-appearing normal vital signs, he has no gross hematuria here when he urinated. He was given a dose of morphine for his pain here, he is well-appearing ambulatory no need for admission, he is wanting something at home for the pain so I will give him a prescription for short course of some tramadol. Radiography Diagnostic Testing: Clinical Impression(s) from Imaging Studies Abdomen/Pelvis CT 05/02/24 14:27 IMPRESSION: Hepatomegaly and fatty filtration of the liver. Distended urinary bladder with a left-sided bladder diverticulum. Prostatic enlargement. Electronically Signed: Carlos Eduardo Currie MD at 15:01 EDT , Discharge Plan Triage Chief Complaint: Back ED Provider: Aime Steevns Dx/Rx/DC Orders Clinical Impression: Contusion of lower back, Fall due to stumbling Instructions: ED Back Contusion Prescriptions: Continued amlodipine 5 MG tablet 5 mg PO DAILY Patient Comments: blood pressure/heart aspirin [Aspir-Low] 81 MG tablet,delayed release (DR/EC) 81 mg PO DAILY Patient Comments: heart health carvedilol [Coreg] 3.125 MG tablet 3.125 mg PO BID Patient Comments: blood pressure/heart tamsulosin 0.4 MG capsule 0.4 mg PO BID Patient Comments: prostate isosorbide mononitrate 30 MG tablet 30 mg PO DAILY Qty: 30 0RF thiamine HCl (vitamin B1) 100 MG tablet 100 mg PO DAILY Qty: 14 0RF folic acid 1 MG tablet 1 mg PO DAILY@0800 Qty: 14 0RF multivitamin,im-nxrv-taczjjjo 1 TABLET tablet 1 tab PO DAILYCM Qty: 30 0RF benzonatate 100 MG capsule 200 mg PO TID PRN PRN (Reason: Cough) Qty: 20 0RF tramadol 50 mg tablet 50 mg PO Q6H PRN (Reason: pain) 3 Days Qty: 12 0RF Discontinued prednisone 20 MG tablet 60 mg PO DAILY Qty: 15 0RF Primary Care Provider: Ada Diamond Referrals: Ada Diamond MD [Primary Care Provider] - As Needed Print Language: Dominican Disposition Disposition: Home, Self Care
[2024-05-02] MEDS: Morphine 2 MG/ML Syringe IM (14:31)
[2024-05-02 16:39] VITALS: BP 118/79; PULSE 76; RESP 16; TEMP 36.3; O2SAT 96
== END 2024-05-02 16:52 | disposition home or self-care (01) ==
PROVIDERS: Emergency Provider Emergency Medicine; PCP Internal Medicine; Visit Provider Emergency Medicine
DX: S20.229A Contusion of unspecified back wall of thorax, initial encounter (principal); I50.9 Heart failure, unspecified; J44.9 Chronic obstructive pulmonary disease, unspecified; Z86.73 Personal history of transient ischemic attack (TIA), and cerebral infarction without residual deficits; W18.39XA Other fall on same level, initial encounter; Y92.009 Unspecified place in unspecified non-institutional (private) residence as the place of occurrence of the external cause; W01.10XA Fall on same level from slipping, tripping and stumbling with subsequent striking against unspecified object, initial encounter; Z79.899 Other long term (current) drug therapy; F17.210 Nicotine dependence, cigarettes, uncomplicated
CPT/HCPCS: 74176; 96372; 99282

== ENCOUNTER 2024-06-06 23:45 | Emergency (ER) | payer OTHER, SELFPAY ==
[2024-06-06 23:46] VITALS: BP 116/72; PULSE 80; RESP 18; TEMP 36.6; O2SAT 100
--- NOTE | 2024-06-07 00:24 | RAD_ITS ---
INDICATION: pain FELL TODAY, LATERAL PAIN AND BRUISING EXAMINATION/TECHNIQUE: X-RAY - LEFT XR Foot Min 3 Views 3 VIEWS COMPARISON: No relevant prior comparison study available FINDINGS: BONES: Acute transverse fracture at the base of the fifth metatarsal, nondisplaced. JOINTS: No dislocation. SOFT TISSUES: Unremarkable. RAD/Foot min 3 Views IMPRESSION: Acute fracture base of the fifth metatarsal. Electronically Signed: Jennifer Carter MD at 1:27 EDT ,
--- NOTE | 2024-06-07 02:32 | EX.ED.DYSGE1 ---
HPI History of Present Illness Chief Complaint: Lower Extremity Injury Informant: patient Narrative Narrative: Patient is a 69-year-old male with past medical history of hypertension COPD and BPH. He states that he ordered a pizza this evening and was waiting over an hour for it to arrive. He states if I did so and he got up to go to the door when he tripped and fell and struck his left foot into the ground. he denies striking his head any loss of consciousness or history of bleeding disorder but states he developed sudden onset of left foot pain and swelling and bruising and has concern for fracture and therefore comes in for evaluation. [facility] Medical History Eli eli disease Stroke Congestive heart failure (CHF) Smoker COPD (chronic obstructive pulmonary disease) Home Medications ?Medication ?Instructions ?Recorded ?Last Taken ?Type amlodipine 5 mg tablet 5 mg PO DAILY blood pressure 02/15/17 12/31/17 History aspirin 81 mg tablet,delayed 81 mg PO DAILY 02/15/17 02/15/17 06:00 History release (Aspir-Low) carvedilol 3.125 mg tablet (Coreg) 3.125 mg PO BID blood pressure 02/15/17 12/31/17 History tamsulosin 0.4 mg capsule 0.4 mg PO BID prostate 02/15/17 12/30/17 History folic acid 1 mg tablet 1 mg PO DAILY@0800 #14 tabs 01/01/18 Unknown Rx isosorbide mononitrate 30 mg 30 mg PO DAILY #30 tabs 01/01/18 Unknown Rx tablet,extended release 24 hr multivitamin,ky-sseg-pglqzrns 27 1 tab PO DAILYCM #30 tabs 01/01/18 Unknown Rx mg-0.4 mg tablet thiamine HCl (vitamin B1) 100 mg 100 mg PO DAILY #14 tabs 01/01/18 Unknown Rx tablet benzonatate 100 mg capsule 200 mg (2 x 100 mg) PO TID PRN PRN 10/11/18 Unknown Rx Cough ##20 tramadol 50 mg tablet 50 mg PO Q6H PRN pain 3 days #12 05/02/24 Unknown Rx tabs oxycodone-acetaminophen 5 mg-325 1 tab PO Q6H PRN pain 5 days #20 06/07/24 Unknown Rx mg tablet (Percocet) tabs Allergy/AdvReac Type Severity Reaction Status Date / Time Penicillins Allergy Unknown NEEDS Verified 06/06/24 23:50 FOLLOW-UP Social History household members: none housing: apartment Smoking Status: Current every day smoker tobacco type: cigarettes alcohol intake: current details: Not recently substance use type: does not use ROS ROS ED Constitutional Constitutional ED: Denies chills or fever(s) Eyes Eyes: Denies blurry vision or change in vision ENT ENT ED: Denies sore throat Cardiovascular Cardiovascular: Reports other Details: Negative syncope ; Denies chest pain Respiratory/Chest Respiratory/Chest: Denies cough or dyspnea Gastrointestinal Gastrointestinal: Denies abdominal pain, diarrhea, nausea or vomiting Genitourinary Genitourinary ED: Denies dysuria Musculoskeletal Musculoskeletal: Reports other Details: Positive left foot pain ; Denies back pain or neck pain Integumentary Reports other Details: Positive left foot bruising Neurologic Neurologic: Denies headache(s) or paresthesias Hematologic/Lymphatic Hematologic/Lymphatic: Denies easy bleeding or easy bruising EXAM Physical Exam Const Vital Signs: 06/06/24 23:46 Temperature 98 F Temperature Source Temporal Pulse Rate 80 Respiratory Rate 18 Blood Pressure 116/72 Blood Pressure Mean 86 Pulse Ox 100 Oxygen Delivery Method Room Air Positive well nourished and well developed General Appearance ED: well developed HEENT HEENT Narrative: Normocephalic atraumatic Eyes PERRL and EOMs intact bilaterally General Eye ED: Negative for scleral icterus Neck supple Neck Narrative: No bony deformity or step-off of the cervical spine no midline tenderness to palpation Chest Wall palpation of chest normal Chest Narrative: No bony deformity or crepitance noted Resp normal respiratory effort Resp Narrative: Breath sounds are diminished throughout with diffuse rhonchi and expiratory wheeze consistent with history of COPD but no signs of respiratory distress Cardio regular rate and regular rhythm Back/Spine Back/Spine Narrative: No bony deformity or step-off of the thoracic or lumbar spine no midline tenderness to palpation Extremity Extremity Narrative: Pelvis is stable there is no shortening or external rotation of either lower extremity Patient can move both arms without difficulty The patient is neurovascularly intact to both arms and legs but there is soft tissue swelling with ecchymosis to the dorsal aspect of the left foot mainly over top the fourth and fifth metatarsals. No obvious bony deformity or joint effusion. No ligamentous laxity or injury to the Achilles tendon noted. No subungual hematoma. Neuro oriented x3 and CN's II-XII intact bilaterally Sensorium / Orientation: alert Psych mental status grossly normal Skin Skin Narrative: Soft tissue swelling ecchymosis to the dorsal aspect of the left foot as documented above MDM MDM MDM Narrative Medical decision making narrative: Patient reported a mechanical fall so I felt no need for cardiac or syncope workup. He denies striking his head or any loss of consciousness and denies bleeding disorder so I felt no need for head CT as I have low concern for traumatic skull fracture versus subdural or epidural hematoma. Physical exam showed changes to the left foot concerning for fracture versus contusion. An x-ray was obtained and does show 5th metatarsal fracture. Secondary to this the patient was placed in a posterior tibial splint for stabilization. However he is closed and neurovascular intact and therefore there is no need for emergent orthopedic or podiatry consultation. As the fracture is now stabilized with a splint he is otherwise safe for discharge with symptomatic care and outpatient follow-up Patient had a 4 inch Ortho-Glass posterior tibial splint placed to the left lower leg. The splint fit the fracture with good approximation and provided appropriate stabilization. Following application the capillary refill remained less than 3 seconds. Patient tolerated the procedure well without complication History & Record Review Discussion w/independent historian: Patient Radiography Diagnostic Testing: Clinical Impression(s) from Imaging Studies Foot X-Ray 06/07/24 00:24 IMPRESSION: Acute fracture base of the fifth metatarsal. Electronically Signed: Jennifer Carter MD at 1:27 EDT , Left foot x-ray as interpreted by the emergency medicine physician reveals 5th metatarsal base fracture without displacement Discharge Plan Triage Chief Complaint: Lower Extremity Injury ED Provider: Reed Varghese Dx/Rx/DC Orders Clinical Impression: Closed nondisplaced fracture of fifth left metatarsal bone, HTN (hypertension), BPH (benign prostatic hyperplasia), COPD (chronic obstructive pulmonary disease) Instructions: ED Fracture, Foot, ED Splint Care, Fiberglass Prescriptions: New oxycodone-acetaminophen [Percocet] 5-325 mg tablet 1 tab PO Q6H PRN (Reason: pain) 5 Days Qty: 20 0RF No Action amlodipine 5 MG tablet 5 mg PO DAILY Patient Comments: blood pressure/heart aspirin [Aspir-Low] 81 MG tablet,delayed release (DR/EC) 81 mg PO DAILY Patient Comments: heart health carvedilol [Coreg] 3.125 MG tablet 3.125 mg PO BID Patient Comments: blood pressure/heart tamsulosin 0.4 MG capsule 0.4 mg PO BID Patient Comments: prostate isosorbide mononitrate 30 MG tablet 30 mg PO DAILY Qty: 30 0RF thiamine HCl (vitamin B1) 100 MG tablet 100 mg PO DAILY Qty: 14 0RF folic acid 1 MG tablet 1 mg PO DAILY@0800 Qty: 14 0RF multivitamin,vy-uzcq-cqesbepk 1 TABLET tablet 1 tab PO DAILYCM Qty: 30 0RF benzonatate 100 MG capsule 200 mg PO TID PRN PRN (Reason: Cough) Qty: 20 0RF tramadol 50 mg tablet 50 mg PO Q6H PRN (Reason: pain) 3 Days Qty: 12 0RF Primary Care Provider: Ada Diamond Referrals: Jasper Schreiber DPM [Med Staff - Active Staff] - Ada Diamond MD [Primary Care Provider] - Activity Restrictions/Additional Instructions: Please follow-up with podiatry to assess casting versus walking boot for your foot fracture. Take the prescribed medication for pain control and continue to ice the area to reduce pain and speed healing. Return to the ER should you have any further concerns Print Language: Irish Disposition Disposition: Home, Self Care Discharge Date/Time: 06/07/24 03:11
[2024-06-07] MEDS: oxyCODONE 5 MG Tablet PO (03:09)
== END 2024-06-07 03:11 | disposition home or self-care (01) ==
PROVIDERS: Emergency Provider Emergency Medicine; PCP Internal Medicine; Visit Provider Emergency Medicine
DX: S92.355A Nondisplaced fracture of fifth metatarsal bone, left foot, initial encounter for closed fracture (principal); I11.0 Hypertensive heart disease with heart failure; I50.9 Heart failure, unspecified; J44.9 Chronic obstructive pulmonary disease, unspecified; F17.210 Nicotine dependence, cigarettes, uncomplicated; N40.0 Benign prostatic hyperplasia without lower urinary tract symptoms; Z86.73 Personal history of transient ischemic attack (TIA), and cerebral infarction without residual deficits; W01.198A Fall on same level from slipping, tripping and stumbling with subsequent striking against other object, initial encounter; Z79.899 Other long term (current) drug therapy; Z79.82 Long term (current) use of aspirin
CPT/HCPCS: 29515; 73630; 99285

== ENCOUNTER 2024-12-23 09:45 | Emergency (ER) | payer OTHER, SELFPAY ==
[2024-12-23 09:45] VITALS: BP 143/80; PULSE 85; RESP 19; TEMP 36.6; O2SAT 98
[2024-12-23 09:53] VITALS: BMI 18.1
--- NOTE | 2024-12-23 10:23 | RAD_ITS ---
PROCEDURE: SHOULDER MIN 2 VIEWS 12/23/2024 REASON FOR EXAM: INJURY/PAIN TECHNIQUE: One (4) view of the right shoulder COMPARISON: No relevant prior FINDINGS: Bones: Oblique fracture through the lateral clavicle at the acromioclavicular joint. Superior offset of the lateral fracture fragment by approximately 8 mm. Joints: Acromioclavicular joint is intact. Glenohumeral joint is unremarkable. Soft tissues: Mild soft tissue swelling. Other: Old healed granulomatous changes in the right upper lobe. RAD/Shoulder min 2 Views IMPRESSION: Acute oblique fracture through the lateral clavicle. Reading Location: [facility]
--- NOTE | 2024-12-23 10:23 | EX.ED.UPPERE ---
HPI History of Present Illness HPI Narrative: Patient presents with a right shoulder injury that occurred after a fall yesterday. Patient fell out of a chair and landed on his right shoulder. Patient describes it as sharp. Patient states it is worse with movement. Patient admits to some weakness of his right arm due to the pain. Patient states he been having some dizziness lately. Patient denies any head injury or loss of consciousness. Patient denies any other injuries. Chief Complaint: Upper Extremity Injury Informant: patient and family Occured/Mechanism Mechanism/Context: Yes fall Onset/Context/Timing Onset: Yesterday Context: Sudden Onset Timing: Continuous Quality of Pain: Sharp Location: Right shoulder Worsened by: Movement Relieved by: Nothing Associated Symptoms Associated Symptoms: Negative for Parasthesia, Weakness or Loss of Funtion [facility] Medical History Eli eli disease Stroke Congestive heart failure (CHF) Smoker COPD (chronic obstructive pulmonary disease) Home Medications ?Medication ?Instructions ?Recorded ?Last Taken ?Type amlodipine 5 mg tablet 5 mg PO DAILY blood pressure 02/15/17 12/31/17 History aspirin 81 mg tablet,delayed 81 mg PO DAILY 02/15/17 02/15/17 06:00 History release (Aspir-Low) carvedilol 3.125 mg tablet (Coreg) 3.125 mg PO BID blood pressure 02/15/17 12/31/17 History tamsulosin 0.4 mg capsule 0.4 mg PO BID prostate 02/15/17 12/30/17 History folic acid 1 mg tablet 1 mg PO DAILY@0800 #14 tabs 01/01/18 Unknown Rx isosorbide mononitrate 30 mg 30 mg PO DAILY #30 tabs 01/01/18 Unknown Rx tablet,extended release 24 hr multivitamin,[id number]-abhn-[id number] 27 1 tab PO DAILYCM #30 tabs 01/01/18 Unknown Rx mg-0.4 mg tablet thiamine HCl (vitamin B1) 100 mg 100 mg PO DAILY #14 tabs 01/01/18 Unknown Rx tablet benzonatate 100 mg capsule 200 mg (2 x 100 mg) PO TID PRN PRN 10/11/18 Unknown Rx Cough ##20 tramadol 50 mg tablet 50 mg PO Q6H PRN pain 3 days #12 09/16/24 Unknown Rx tabs oxycodone-acetaminophen 5 mg-325 1 tab PO Q6H PRN pain 5 days #20 06/07/24 Unknown Rx mg tablet (Percocet) tabs hydrocodone-acetaminophen 5-325mg 1 tab PO Q6H PRN PRN Pain 3 days 12/23/24 Unknown Rx 5mg-325mg #10 TABLETS Allergy/AdvReac Type Severity Reaction Status Date / Time Penicillins Allergy Unknown NEEDS Verified 12/23/24 09:45 FOLLOW-UP Social History household members: none housing: apartment Smoking Status: Current every day smoker tobacco type: cigarettes alcohol intake: current details: Not recently substance use type: does not use ROS ROS ED Constitutional Constitutional ED: Denies chills or fever(s) Eyes Eyes: Denies blurry vision or change in vision ENT ENT ED: Denies rhinorrhea or sore throat Cardiovascular Cardiovascular: Denies chest pain or palpitations Respiratory/Chest Respiratory/Chest: Denies cough or dyspnea Gastrointestinal Gastrointestinal: Denies nausea or vomiting Genitourinary Genitourinary ED: Denies dysuria or hematuria Musculoskeletal Musculoskeletal: Denies back pain or neck pain Integumentary Denies abscess or rash Neurologic Neurologic: Denies headache(s) or weakness Allergic/Immunologic Allergic/Immunologic ED: Denies mouth swelling or urticaria EXAM Physical Exam Const Vital Signs: 12/23/24 09:45 Temperature 98 F Temperature Source Oral Pulse Rate 85 Respiratory Rate 19 H Blood Pressure 143/80 H Blood Pressure Mean 101 Pulse Ox 98 Oxygen Delivery Method Room Air Positive well nourished and well developed General Appearance ED: well developed and NAD HEENT Reports moist mucous membranes Neck full ROM and supple Extremity Extremity Narrative: There is tenderness with mild edema and ecchymosis over the right distal clavicle and shoulder area. There is no obvious deformity noted. Range of motion was limited in all motions of the right shoulder secondary to pain. Strength is 5/5 in the radial, median, and ulnar areas. Sensation was intact to light touch in the radial, median, ulnar, and axillary areas. Radial pulses are equal bilaterally. Neuro oriented x3, CN's II-XII intact bilaterally, moves all extremities, no focal motor deficits and no sensory deficits noted Sensorium / Orientation: alert Motor Exam: strength 5/5 throughout Psych mental status grossly normal MDM MDM MDM Narrative Medical decision making narrative: Differential diagnosis clavicle fracture, proximal humerus fracture, dislocation, sprain, and contusion. X-rays of the right shoulder will be obtained to assess for fracture. Radiography Diagnostic Testing: X-rays of the right shoulder were obtained. There are 4 views. On my independent interpretation, there is a fracture of the right distal clavicle. There is no dislocation. Fracture of the proximal humerus. Radiologist also interpreted the x-rays and agrees. Treatment and Re-Evaluation Narrative: Patient and family were apprised of the findings. Patient was placed in a sling and swath. Patient was instructed to use ice to the area. Patient was given a prescription for short course of [place]. Patient was instructed to follow-up with his primary care physician in 5 to 7 days. Patient was instructed to return if worse in any way. Patient understood and was agreeable with the plan. All questions were answered. Discharge Plan Triage Chief Complaint: Upper Extremity Injury ED Provider: Giuseppe Raygoza Dx/Rx/DC Orders Clinical Impression: Closed fracture of distal clavicle, Fall Instructions: ED Fracture, Clavicle Prescriptions: New hydrocodone-acetaminophen 5-325 mg tablet 1 tab PO Q6H PRN PRN (Reason: Pain) 3 Days Qty: 10 0RF No Action amlodipine 5 MG tablet 5 mg PO DAILY Patient Comments: blood pressure/heart aspirin [Aspir-Low] 81 MG tablet,delayed release (DR/EC) 81 mg PO DAILY Patient Comments: heart health carvedilol [Coreg] 3.125 MG tablet 3.125 mg PO BID Patient Comments: blood pressure/heart tamsulosin 0.4 MG capsule 0.4 mg PO BID Patient Comments: prostate isosorbide mononitrate 30 MG tablet 30 mg PO DAILY Qty: 30 0RF thiamine HCl (vitamin B1) 100 MG tablet 100 mg PO DAILY Qty: 14 0RF folic acid 1 MG tablet 1 mg PO DAILY@0800 Qty: 14 0RF multivitamin,gb-ncln-kgamskyq 1 TABLET tablet 1 tab PO DAILYCM Qty: 30 0RF benzonatate 100 MG capsule 200 mg PO TID PRN PRN (Reason: Cough) Qty: 20 0RF tramadol 50 mg tablet 50 mg PO Q6H PRN (Reason: pain) 3 Days Qty: 12 0RF oxycodone-acetaminophen [Percocet] 5-325 mg tablet 1 tab PO Q6H PRN (Reason: pain) 5 Days Qty: 20 0RF Primary Care Provider: Ada Diamond Referrals: Ada Diamond MD [Primary Care Provider] - 3-5 Days Print Language: Micronesian Disposition Disposition: Home, Self Care
[2024-12-23] MEDS: HYDROcodone Bitartrate/Apap 5/325 Tablet PO (12:34)
[2024-12-23 12:47] VITALS: BP 127/79; PULSE 71; RESP 20; TEMP 36.6; O2SAT 95
== END 2024-12-23 12:48 | disposition home or self-care (01) ==
PROVIDERS: Emergency Provider Emergency Medicine; PCP Internal Medicine; Visit Provider Emergency Medicine
DX: S42.034A Nondisplaced fracture of lateral end of right clavicle, initial encounter for closed fracture (principal); I50.9 Heart failure, unspecified; J44.9 Chronic obstructive pulmonary disease, unspecified; F17.210 Nicotine dependence, cigarettes, uncomplicated; W07.XXXA Fall from chair, initial encounter; Z86.73 Personal history of transient ischemic attack (TIA), and cerebral infarction without residual deficits
CPT/HCPCS: 73030; 99283